=== PATIENT | female | born 1950 | race Caucasian/White ===

== ENCOUNTER 2020-01-21 09:37 | Outpatient (CLI) | payer MEDICARE, SELFPAY ==
[2020-01-21 10:44] LABS: Alanine Aminotransferase 18 U/L (4-35); Albumin Level 4.3 g/dL (3.5-5.1); Alkaline Phosphatase 97 U/L (38-126); Anion Gap 7 mmol/L (8-16); Aspartate Amino Transferase 24 U/L (14-36); Bilirubin,Total 0.5 mg/dL (0.2-1.3); Blood Urea Nitrogen 19 mg/dL (7-17); Calcium 9.4 mg/dL (8.4-10.2); Carbon Dioxide 28 mmol/L (22-30); Chloride 103 mmol/L (98-107); Cholesterol 142 mg/dL (0-200); Estimated Glomerular Filt Rate 50; Glucose 100 mg/dL (65-105); HDL Direct 58 mg/dL; Potassium 3.7 mmol/L (3.4-5.0); Sodium 138 mmol/L (137-145); Triglycerides 81 mg/dL (<150)
[2020-01-21 10:54] LABS: LDL Cholesterol Direct 54 mg/dL
[2020-01-21 11:35] LABS: Vitamin D 25 Hydroxy 33.5 ng/mL
== END 2020-01-21 09:38 | disposition home or self-care (01) ==
PROVIDERS: PCP Internal Medicine; Visit Provider Internal Medicine
DX: E78.5 Hyperlipidemia, unspecified (principal); I10 Essential (primary) hypertension; Z79.899 Other long term (current) drug therapy
CPT/HCPCS: 36415; 80053; 80061; 82306

== ENCOUNTER 2021-01-12 09:09 | Outpatient (CLI) | payer MEDICARE, SELFPAY ==
[2021-01-12 10:00] LABS: Alanine Aminotransferase 19 U/L (4-35); Albumin Level 4.1 g/dL (3.5-5.1); Alkaline Phosphatase 96 U/L (38-126); Anion Gap 7 mmol/L (8-16); Aspartate Amino Transferase 25 U/L (14-36); Bilirubin,Total 0.5 mg/dL (0.2-1.3); Blood Urea Nitrogen 18 mg/dL (7-17); Calcium 9.5 mg/dL (8.4-10.2); Carbon Dioxide 27 mmol/L (22-30); Chloride 103 mmol/L (98-107); Cholesterol 152 mg/dL (0-200); Estimated Glomerular Filt Rate > 60; Glucose 101 mg/dL (65-110); HDL Direct 60 mg/dL; Potassium 3.7 mmol/L (3.4-5.0); Sodium 137 mmol/L (137-145); Triglycerides 95 mg/dL (<150)
[2021-01-12 10:11] LABS: LDL Cholesterol Direct 51 mg/dL
[2021-01-12 11:18] LABS: Vitamin D 25 Hydroxy 43.3 ng/mL
== END 2021-01-12 09:10 | disposition home or self-care (01) ==
LOC: ANHLAB 09:12
PROVIDERS: PCP Internal Medicine; Visit Provider Internal Medicine
DX: E78.5 Hyperlipidemia, unspecified (principal); Z79.899 Other long term (current) drug therapy; I10 Essential (primary) hypertension
CPT/HCPCS: 36415; 80053; 80061; 82306

== ENCOUNTER 2021-08-12 00:28 | Day surgery (SDC) | payer MEDICARE, SELFPAY ==
[2021-08-02 10:50] VITALS: BMI 33.3
--- NOTE | 2021-08-11 10:16 | P.PNAN_ITS ---
Anes - Eval Pre Procedure Procedure: Operation Date: 08/12/21 09:45 Proposed Procedures p Screening Colonoscopy - Jamie Anderson MD Date/Time: 08/11/21 10:16 Pre Op Diagnosis: family hx of colon ca Patient Data Age: 71 Gender: F Height: 1.65 m Weight: 91 kg Allergies Allergy/AdvReac Type Severity Reaction Status Date / Time No Known Allergies Allergy Unknown Uncoded 08/02/21 10:51 Home Medications Medication Instructions Recorded Confirmed Type cholecalciferol (vitamin D3) 125 5,000 unit PO DAILY 04/13/19 08/02/21 History mcg (5,000 unit) capsule lisinopril 20 mg tablet 20 mg PO DAILY 04/13/19 08/02/21 History pantoprazole 40 mg tablet,delayed 40 mg PO QAM 04/13/19 08/02/21 History release rosuvastatin 5 mg tablet 5 mg PO DAILY 04/13/19 08/02/21 History bupropion HCl 150 mg PO DAILY 08/02/21 08/02/21 History Patient hx anesthesia problems: none Family hx anesthesia problems: none Results Review: All pre-operative results and documents have been reviewed as part of the pre-operative evaluation. [facility] Past Medical History Medical History History of hemorrhoids Hypertension Hypocholesterolemia Surgical History Surgical History H/O hernia repair right spigelian H/O tubal ligation H/O: hysterectomy History of bladder surgery bladder tie up History of cholecystectomy Family History Family History Father Hypertension Family history of arthritis Family history of lung disease Mother Hypertension Family history of liver disease Family history of arthritis Family history of malignant neoplasm, Onset Age: 81 Sibling Family history of lung cancer Family history of malignant neoplasm of breast in first degree relative Other Family history of cardiovascular disease Social History Social History Smoking status: Never smoker Alcohol intake: never Living arrangements: with family Spiritual care concerns: No Exam Day of Procedure 08/11/21 10:16
[2021-08-12 08:54] VITALS: BP 136/79; PULSE 85; RESP 16; TEMP 36.4; O2SAT 98
--- NOTE | 2021-08-12 09:03 | WPDANESEFPP ---
Anes - Eval Final PreProcedure Day of Procedure 08/12/21 09:03 Patient weight: obese Heart: regular rate and rhythm Lungs: clear to auscultation and normal air movement Airway: Mallampati scale class II Neurological: alert and oriented Last oral intake: >/= 8 hours ASA classification: III Emergent: no Anesthetic plan: proceed Anesthesia type and monitoring: general GIVS and standard monitoring Results Review: All pre-operative results and documents have been reviewed as part of the pre-operative evaluation. Informed Consent: The patient's anesthetic plan and its attendant risks and benefits were discussed with the patient/family/POA. Questions were solicited and answers provided to the satisfaction of the patient/family/POA.
[2021-08-12] MEDS: LACTATED RINGERS 1,000 ML 150 ML IV CONT (09:05)
--- NOTE | 2021-08-12 09:07 | P.CONGI_ITS ---
Assessment and Plan Assessment and plan (1) Colon cancer screening: Code(s): Z12.11 - Encounter for screening for malignant neoplasm of colon Status: Acute Assessment and Plan: Colonoscopy with possible biopsy or polypectomy or cautery or injection of substances. GI Consult Note Consult date/time: 08/12/21 09:07 HPI: Henny Jeff is a 71 year old female referred for colon cancer screening. She has a family history of colon cancer her mother. Review of Systems Review of Systems: All systems reviewed & are unremarkable except as noted in HPI and below [facility] Past Medical History Medical History (Updated 08/12/21 @ 09:13 by Jamie Anderson MD) History of hemorrhoids Hypertension Hypocholesterolemia Surgical History Surgical History H/O hernia repair right spigelian H/O tubal ligation H/O: hysterectomy History of bladder surgery bladder tie up History of cholecystectomy Family History Family History Father Hypertension Family history of arthritis Family history of lung disease Mother Hypertension Family history of liver disease Family history of arthritis Family history of malignant neoplasm, Onset Age: 81 Sibling Family history of lung cancer Family history of malignant neoplasm of breast in first degree relative Other Family history of cardiovascular disease Social History Social History Smoking status: Never smoker Alcohol intake: never Living arrangements: with family Spiritual care concerns: No Meds Home Medications and Allergies Home Medications Medication Instructions Recorded Confirmed Type cholecalciferol (vitamin D3) 125 5,000 unit PO DAILY 04/13/19 08/02/21 History mcg (5,000 unit) capsule lisinopril 20 mg tablet 20 mg PO DAILY 04/13/19 08/12/21 History pantoprazole 40 mg tablet,delayed 40 mg PO QAM 04/13/19 08/02/21 History release rosuvastatin 5 mg tablet 5 mg PO DAILY 04/13/19 08/02/21 History bupropion HCl 150 mg PO DAILY 08/02/21 08/02/21 History Allergies Allergy/AdvReac Type Severity Reaction Status Date / Time No Known Allergies Allergy Unknown Uncoded 08/12/21 08:53 Vital Signs Vital Signs - 24 hr 08/12/21 08:54 Temperature 36.4 C L Pulse Rate 85 Respiratory Rate 16 Blood Pressure 136/79 Pulse Oximetry 98 Exam Const: General: alert Orientation/consciousness: patient oriented x3 Resp: Auscultation: clear to auscultation bilaterally Cardio: Rhythm: regular rhythm GI: GI Palp: Yes Soft to palpation and No Tenderness to palpation present (GI) Neuro: General: patient oriented x3
[2021-08-12 09:55] VITALS: BP 114/66; PULSE 81; RESP 20; O2SAT 98
[2021-08-12 10:05] VITALS: BP 122/79; PULSE 78; RESP 19; O2SAT 100
[2021-08-12 10:15] VITALS: BP 140/85; PULSE 80; RESP 20; O2SAT 100
== END 2021-08-12 10:20 | disposition home or self-care (01) ==
PROVIDERS: PCP Internal Medicine; Visit Provider Internal Medicine Gastroenterology
PROC: 0DJD8ZZ Inspection of Lower Intestinal Tract, Via Natural or Artificial Opening Endoscopic (ICD-10-PCS; CPT 45378; principal; 2021-08-12 09:45)
DX: Z12.11 Encounter for screening for malignant neoplasm of colon (principal); K64.8 Other hemorrhoids; K57.30 Diverticulosis of large intestine without perforation or abscess without bleeding; Z80.0 Family history of malignant neoplasm of digestive organs; I10 Essential (primary) hypertension; E78.00 Pure hypercholesterolemia, unspecified
CPT/HCPCS: G0105; J2704; J7120

== ENCOUNTER 2022-03-28 10:58 | Outpatient (CLI) | payer MEDICARE, SELFPAY ==
[2022-03-28 11:25] LABS: Basophils Percent Auto 0.7 % (0.2-1.2); Eosinophils Absolute Auto 0.1 K/mm3 (0-0.3); Eosinophils Percent Auto 0.9 % (0-4.4); Hematocrit 40.9 % (37.0-47.0); Hemoglobin 13.1 g/dL (12.0-15.0); Immature Granulocyte Absolute 0.02 K/mm3 (0.00-0.031); Immature Granulocyte Percent A 0.3 % (0-0.5); Lymphocytes Absolute Auto 1.42 K/mm3 (0.9-3.2); Lymphocytes Percent Auto 24.8 % (18.3-44.2); Mean Corpuscular Hemoglobin 29.5 pg (26-34); Mean Corpuscular Volume 92.1 fl (80-100); Mean Platelet Volume 11.8 fl (7.4-10.4); Monocytes Absolute Auto 0.4 K/mm3 (0.1-0.6); Monocytes Percent Auto 7.5 % (2.6-8.5); Neutrophils Absolute Auto 3.8 K/mm3 (1.3-6.7); Neutrophils Percent Auto 65.8 % (45.5-73.1); Platelet Count Result 194 k/mm3 (150-375); Red Blood Count 4.44 M/mm3 (4.2-5.4); Red Cell Distribution Width 14.3 % (11.5-14.5); White Blood Count 5.7 K/mm3 (4.5-10.0)
[2022-03-28 11:35] LABS: Alanine Aminotransferase 21 U/L (6-35); Albumin Level 4.5 g/dL (3.5-5.1); Alkaline Phosphatase 100 U/L (38-126); Anion Gap 14 mmol/L (8-16); Aspartate Amino Transferase 25 U/L (14-36); Bilirubin,Total 0.6 mg/dL (0.2-1.3); Blood Urea Nitrogen 18 mg/dL (7-17); Calcium 9.8 mg/dL (8.4-10.2); Carbon Dioxide 25 mmol/L (22-30); Chloride 102 mmol/L (98-107); Cholesterol 156 mg/dL (0-200); Estimated Glomerular Filt Rate 45; Glucose 105 mg/dL (65-110); HDL Direct 67 mg/dL; Potassium 3.6 mmol/L (3.4-5.0); Sodium 141 mmol/L (137-145); Triglycerides 79 mg/dL (<150)
[2022-03-28 11:45] LABS: LDL Cholesterol Direct 57 mg/dL
[2022-03-28 11:51] LABS: Vitamin D 25 Hydroxy 38.6 ng/mL
== END 2022-03-28 10:59 | disposition home or self-care (01) ==
PROVIDERS: PCP Internal Medicine; Visit Provider Internal Medicine
DX: Z51.81 Encounter for therapeutic drug level monitoring (principal); Z79.899 Other long term (current) drug therapy; I10 Essential (primary) hypertension; E78.5 Hyperlipidemia, unspecified
CPT/HCPCS: 36415; 80053; 80061; 82306; 85025

== ENCOUNTER 2022-11-28 19:02 | Emergency (ER) | payer MEDICARE, SELFPAY ==
[2022-11-28] VITALS (13 sets, daily range): BP systolic 128–162; BP diastolic 72–87; PULSE 82–99; RESP 13–18; TEMP 36.8; O2SAT 97–100
--- NOTE | ~2022-11-28 | XR_ITS ---
EXAMINATION: XR chest 2V Exam Date/Time: 11/28/2022 19:35 CDT HISTORY: chest pain, sob WITH LEFT ARM PAIN X 1 DAY Comparison: None. RESULT: Lines, tubes, and devices: Cholecystectomy clips. Lungs and pleura: Clear. Cardiomediastinal silhouette: Stable. Other: No acute osseous or upper abdominal finding. IMPRESSION: No acute cardiopulmonary process. Reviewed, dictated and finalized at location K.
--- NOTE | 2022-11-28 19:21 | ECG_ITS ---
Measurements Intervals [place] Rate: 93 P: 30 TX: 204 QRS: -1 QRSD: 86 T: 10 QT: 336 QTc: 419 Interpretive Statements SINUS RHYTHM BASELINE ARTIFACT OTHERWISE GROSSLY NORMAL ECG COMPARED TO ECG 03/30/2019 12:29:28 NO SIGNIFICANT CHANGES Electronically Signed On 11-29-2022 8:15:27 CDT by Simone Snow M.D.
--- NOTE | 2022-11-28 19:31 | PC.NURSE ---
After Dr. Cesar left room pt states I'm just worried about my , and pt became tearful. 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 Dr. Cesar notified.
[2022-11-28 19:35] LABS: Basophils Absolute Auto 0.1 K/mm3 (0.0-0.1); Basophils Percent Auto 0.6 % (0.2-1.2); Eosinophils Absolute Auto 0.1 K/mm3 (0-0.3); Hematocrit 38.5 % (37.0-47.0); Hemoglobin 12.6 g/dL (12.0-15.0); Immature Granulocyte Absolute 0.02 K/mm3 (0.00-0.031); Immature Granulocyte Percent A 0.2 % (0-0.5); Lymphocytes Absolute Auto 2.05 K/mm3 (0.9-3.2); Mean Corpuscular HGB Conc 32.7 g/dl (32-36); Mean Corpuscular Hemoglobin 30.1 pg (26-34); Mean Corpuscular Volume 91.9 fl (80-100); Mean Platelet Volume 11.7 fl (7.4-10.4); Monocytes Absolute Auto 0.9 K/mm3 (0.1-0.6); Monocytes Percent Auto 9.9 % (2.6-8.5); Neutrophils Absolute Auto 5.8 K/mm3 (1.3-6.7); Neutrophils Percent Auto 65.3 % (45.5-73.1); Platelet Count Result 188 k/mm3 (150-375); Red Blood Count 4.19 M/mm3 (4.2-5.4); Red Cell Distribution Width 13.7 % (11.5-14.5); White Blood Count 8.9 K/mm3 (4.5-10.0)
[2022-11-28] MEDS: SODIUM CHLORIDE 0.9% IV 1,000 ML 999 ML IV CONT (19:38)
--- NOTE | 2022-11-28 19:42 | ED.GENADULT ---
HPI - General Adult General Chief complaint: Unspecified Stated complaint: i dont feel right Time Seen by Provider: 11/28/22 19:14 History of Present Illness HPI narrative: 72-year-old female presented emergency department for evaluation of not feeling well . Patient states that she had multiple episodes over the last few days where she just did not feel right. Patient is having difficulty explaining exactly what she means by this. Patient states she was not having any pain during this process and patient did not feel like she was going to pass out. Patient states that she did not have any associated dizziness but did feel like she was moving while she was not moving. Patient states the symptoms occurred while she was at rest and lasted approximately 1 minute. Patient states her primary concern is anxiety after these episodes. Patient denies any prior history of SC or CVA. In the emergency department patient denies any complaints. Related Data Home Medications Medication Instructions Recorded Confirmed cholecalciferol (vitamin D3) 125 5,000 unit PO DAILY 04/13/19 08/02/21 mcg (5,000 unit) capsule lisinopril 20 mg tablet 20 mg PO DAILY 04/13/19 08/12/21 pantoprazole 40 mg tablet,delayed 40 mg PO QAM 04/13/19 08/02/21 release rosuvastatin 5 mg tablet 5 mg PO DAILY 04/13/19 08/02/21 bupropion HCl 150 mg 24 hr tablet, 150 mg PO DAILY 08/02/21 08/02/21 extended release Allergies Allergy/AdvReac Type Severity Reaction Status Date / Time No Known Allergies Allergy Unknown Uncoded 11/28/22 19:12 Review of Systems Review of Systems: All systems reviewed & are unremarkable except as noted in HPI and below [facility] Past Medical History Medical History (Updated 11/29/22 @ 00:00 by Background Daemon) History of hemorrhoids Hypertension Hypocholesterolemia Surgical History Surgical History H/O hernia repair right spigelian H/O tubal ligation H/O: hysterectomy History of bladder surgery bladder tie up History of cholecystectomy Family History Family History Father Hypertension Family history of arthritis Family history of lung disease Mother Hypertension Family history of liver disease Family history of arthritis Family history of malignant neoplasm, Onset Age: 81 Sibling Family history of lung cancer Family history of malignant neoplasm of breast in first degree relative Other Family history of cardiovascular disease Social History Social History Smoking status: Never smoker Alcohol intake: never Living arrangements: with family Spiritual care concerns: No Exam Narrative: APPEARANCE: Well appearing, no pain, no distress, well-nourished. HEAD: normocephalic, atraumatic. EYES: PERRLA/EOMI, conjunctivae clear. NOSE: Normal no drainage EARS:TMS clear with good light reflex. THROAT: Pharynx clear, no exudate. NECK: Supple. No adenopathy, no masses. RESPIRATORY: Airway patent, respirations nonlabored. Clear to auscultation bilaterally, no rales, rhonchi, wheezing. CARDIOVASCULAR: Regular rate and rhythm without murmurs rubs or gallops. ABDOMINAL: Soft, nontender, nondistended, normal bowel sounds MUSCULOSKELETAL: Moves all extremities. Strength/ROM intact, No edema, No calf tenderness. NEURO: Alert. Cranial nerves II through XII intact. Grossly intact SKIN: Warm, dry. Normal Color Course Course Emergency Course: 72-year-old female presented the ED for evaluation of not feeling well. Patient had told the triage nurse that she was having some chest pressure so cardiac protocol was ordered. EKG showed no evidence of acute STEMI and showed normal sinus rhythm. Patient was updated on the plan for additional work-up. All questions and concerns were addressed and patient was resting comfortably. Patie
[2022-11-28 19:45] LABS: Alanine Aminotransferase 26 U/L (6-35); Albumin Level 4.3 g/dL (3.5-5.1); Alkaline Phosphatase 108 U/L (38-126); Anion Gap 6 mmol/L (8-16); Aspartate Amino Transferase 34 U/L (14-36); Bilirubin,Total 0.4 mg/dL (0.2-1.3); Blood Urea Nitrogen 22 mg/dL (7-17); Calcium 9.5 mg/dL (8.4-10.2); Carbon Dioxide 30 mmol/L (22-30); Chloride 100 mmol/L (98-107); Estimated CRCL calculation 46 ml/min; Estimated Glomerular Filt Rate 49; Glucose 101 mg/dL (65-110); Lipase 57 U/L (23-300); Potassium 3.4 mmol/L (3.4-5.0); Sodium 136 mmol/L (137-145)
[2022-11-28 19:57] LABS: Troponin I < 0.012 ng/mL (0.000-0.034)
[2022-11-28 19:59] LABS: Platelet Estimate Adequate (Adequate)
[2022-11-28 20:00] LABS: Stomatocytes 1+ (NORMAL)
[2022-11-28 20:02] LABS: Schistocytes None Seen (NORMAL)
[2022-11-28 20:03] LABS: Partial Thromboplastin Time 30.9 SECONDS (22.3-36.8)
[2022-11-28 20:05] LABS: Magnesium 2.2 mg/dL (1.6-2.3)
[2022-11-28 20:49] LABS: Appearance Urine Clear (Clear); Bacteria Urine Rare /hpf; Bilirubin Urine Negative (Negative); Blood Urine Negative (Negative); Color Urine Yellow (Yellow); Glucose Urine UA Negative (Negative); Ketones Urine Negative (Negative); Leukocyte Esterase Ur 2+ LEU/UL (Negative); Nitrate Urine Negative (Negative); Non Pathogenic Casts 0-2; Protein Urine Negative (Negative); RBC Urine 0-2 /hpf (0-2); Specific Grav Ur 1.006 (1.001-1.035); Squamous Epithelial Cell Urine Occasional /hpf (Few); Urobilinogen Urine 0.2 mg/dL (<2.0); pH Urine 6.5 (5.0-9.0)
[2022-11-28 20:54] LABS: Add Urine Microscopic? YES
[2022-11-28 23:09] LABS: Troponin I < 0.012 ng/mL (0.000-0.034)
== END 2022-11-28 23:50 | disposition home or self-care (01) ==
PROVIDERS: Emergency Provider Emergency Medicine; PCP Internal Medicine
DX: R53.83 Other fatigue (principal); R07.89 Other chest pain; I10 Essential (primary) hypertension; E78.00 Pure hypercholesterolemia, unspecified; Z90.710 Acquired absence of both cervix and uterus; Z90.49 Acquired absence of other specified parts of digestive tract
CPT/HCPCS: 36415; 71046; 80053; 81001; 83690; 83735; 84443; 84484; 85025; 85610; 85730; 87086; 87088; 93005; 96360; 99284; J7030

== ENCOUNTER 2022-12-29 16:17 | Outpatient (CLI) | payer MEDICARE, SELFPAY ==
[2022-12-29 17:32] LABS: Alanine Aminotransferase 26 U/L (6-35); Albumin Level 4.5 g/dL (3.5-5.1); Alkaline Phosphatase 115 U/L (38-126); Anion Gap 9 mmol/L (8-16); Aspartate Amino Transferase 30 U/L (14-36); Bilirubin,Total 0.4 mg/dL (0.2-1.3); Blood Urea Nitrogen 20 mg/dL (7-17); Calcium 9.4 mg/dL (8.4-10.2); Carbon Dioxide 27 mmol/L (22-30); Chloride 100 mmol/L (98-107); Cholesterol 180 mg/dL (0-200); Estimated Glomerular Filt Rate 55; Glucose 116 mg/dL (65-110); HDL Direct 73 mg/dL; Potassium 3.4 mmol/L (3.4-5.0); Sodium 136 mmol/L (137-145); Triglycerides 160 mg/dL (<150)
[2022-12-29 17:44] LABS: LDL Cholesterol Direct 66 mg/dL
[2022-12-29 20:28] LABS: Vitamin D 25 Hydroxy 37.6 ng/mL
== END 2022-12-29 16:18 | disposition home or self-care (01) ==
PROVIDERS: PCP Internal Medicine; Visit Provider Internal Medicine
DX: E78.5 Hyperlipidemia, unspecified (principal); Z79.899 Other long term (current) drug therapy
CPT/HCPCS: 36415; 80053; 80061; 82306

== ENCOUNTER 2024-09-08 22:29 | Emergency (ER) | payer MEDICARE, SELFPAY ==
--- NOTE | ~2024-09-08 | CT_ITS ---
CT scan of the Neck Technique: 2.5 mm axial scans were obtained through the neck after intravenous administration of 75 c c Omnipaque 350. Coronal and sagittal reconstructions of the neck were obtained. Dose reduction techn ique was used on this scan by utilizing automated exposure control and iterative reconstruction techn ique. The dose-length product (DLP) was 446.44 mGy-cm. Clinical History: Prevertebral soft tissue swelling Findings: There is no evidence of any significant cervical lymphadenopathy. Several small, nonenlarged jugulo- digastric and posterior cervical lymph nodes are noted bilaterally. Parapharyngeal spaces appear norm al bilaterally. The parotid and submandibular glands appear normal. The pharyngeal mucosal spaces appear normal. No soft tissue masses are seen in the neck. The thyroid gland appears normal. Images of the lung apices reveal no abnormalities. Left sphenoid si nus disease is present. No prevertebral soft tissue swelling. Impression: Left sphenoid sinus disease, otherwise unremarkable exam. Reviewed, dictated and finalized at location . Impression: Left sphenoid sinus disease, otherwise unremarkable exam.
--- NOTE | ~2024-09-08 | XR_ITS ---
AP and lateral views of the neck CLINICAL HISTORY: Globus sensation FINDINGS: No fracture or subluxation of the cervical spine identified. There is moderate facet arthro tori in the cervical spine. No prevertebral soft tissue swelling. No radiopaque foreign body. Epiglo ttis unremarkable. No soft tissue reality seen. IMPRESSION: No significant abnormality identified. Reviewed, dictated and finalized at [facility].
--- OUTSIDE RECORDS SUMMARY | 2024-09-08 22:31 | XMS_ITS | Data Portability ---
Author Organization [place] - [facility] [employer], Main Office Address [address] [place] [address] Care Team Providers Care Nurse Office Name Role Phone SHEILA EUBANKS Primary Care Provider Assessment No assessment recorded. Plan of Treatment Reminders Order Date Submit Date Provider Last Modified By Organization Details Last Modified Time Details Appointments Medicare Wellness 15 2024 09:30A M Sheila Eubanks MD Not available Not available Not available Lab BMP, serum or plasma 2024 025 [place] [facility], [address], [address], [place], [address], 08/25/2024 14:12:35 vitamin D, 25-hydrox y, total, serum 2023 024 [facility], [address] [place], [address], 12/29/2023 21:09:31 lipid panel, serum 2023 024 [facility], [address] [place], [address], 12/29/2023 20:43:14 CMP, serum or plasma 2023 024 [facility], [address] [place], [address], 12/29/2023 20:43:10 Referral None recorded. Procedures removal impacted cerumen requiring instrumen tation (PROC) 2024 025 [email or web address] Not available 09/08/2024 10:17:20 Surgeries None recorded. Imaging MAMMO, screening , digital, bilateral - Schedule After 01/16/242023 024 RASHIDA [facility], [address], [place], [address], 02/23/2024 11:17:38 Medication Orders ketoconaz ole 2 % topical cream 2023 024 RASHIDA [facility]/Pharmacy #[id number], [address], [place], [address], 10/01/2023 14:16:00 Patient TargetsNo targets recorded. Patient Instructions Encounter Date Encounter Id Patient Instructions Last Modified By Organization Details Last Modified Time 12/29/2023 [id number] dementia rating scale-2* Not available 12/30/2023 08:40:22 depression screening* Not available 12/30/2023 08:40:23 alcohol misuse* Not available 12/30/2023 08:40:23 multi-dimensiona l health assessment questionnaire* RASHIDA Not available 12/31/2023 12:51:02 Personalized a lth Plan and Screening Recommendations Advance Directives - Do you have one? Yes You have indicated that you are capable of preparing your advance care directive Advance Directives - Do we have your advance directive on file in your health record? No, please bring in a copy at your earliest convenience Primary Prevention/Interven tion (prevents or decreases the chance of common diseases from occurring) Smoking Risk: Non Smoker Alcohol Misuse Screening: Negative Weight: Appropriate Overwei ght continue your current weight loss efforts try to lose 5% of your body weight try to lose 10% of your body weight Physical activity: Need more exercise/physical activity minimum of 10-20 minutes of activity that causes mild breathlessness/day Nutrition: Good Average Refer to attached handout Heart-Healthy Diet: After Your Visit Fall Risk (screened today): Low Refer to attached handout Preventing Falls: After your Visit Vaccines Pneumococcal: Ordered Recommended today Recommended today, but you have declined No further needed Influenza: Your next one in the fall of this year Chronic Disease Risks Stroke: Low Risk Intermediate Risk I have no recommendations Act ruma diagnosis, Continue current treatment plan Heart Attack: Low risk Intermediate Risk I have no recommendations Act ruma diagnosis, Continue current treatment plan Clogging of the Arteries: Low risk Intermediate Risk I have no recommendations Act ruma diagnosis, Continue current treatment plan Diabetes: Low Risk I have no recommendations Secondary Prevention/Interven tion (detects treatable diseases before they may cause symptoms, disability, or ) Breast Cancer Screening with mammogram: No screening necessary Cervical/Uterine/Ov dayton Cancer Screening: No screening necessary Osteoporosis Screening: No screening necessary Date Screening Last Performed: Colon Cancer Screening: Colonoscopy Date Screening Last Performed: 2021_ Eye Disease Screening: No Eye exam necessary Dementia Risk: Low I have no recommendations Depression Screening: Negative [email or web address] Not available 12/29/2023 13:05:18 09/07/2024 [id number] advised that if her throat symptoms continue to persist in several weeks to follow up with her PCP for a GI referral. Discussed that her symptoms are likely due to the recent loss of her spouse. [email or web address] Not available 09/07/2024 12:13:19 Reason for Referral None Reported. Results Created Date Observation Date Name Description Value Unit Range Abnormal Flag Note LastModifiedBy Organization Detail LastModifiedTime 12/29/19 24 12/29/2023 COMPR EHENS RUMA METAB OLIC PANEL sodium 135 mmol/ L 137-[address] [facility] (Lab) [address] [place], [address], 12/29/2023 20:43:10 12/29/19 24 12/29/2023 COMPR EHENS RUMA METAB OLIC PANEL potassium 4.1 mmol/ L 3.5-5. [address] [facility] (Lab) [address] [place], [address], 12/29/2023 20:43:10 12/29/19 24 12/29/2023 COMPR EHENS RUMA METAB OLIC PANEL chloride 104 mmol/ L 98-[address] [facility] (Lab) [address] [place], [address], 12/29/2023 20:43:10 12/29/19 24 12/29/2023 COMPR EHENS RUMA METAB OLIC PANEL carbon dioxide 28 mmol/ L 22-[address] [facility] (Lab) [address] [place], [address], 12/29/2023 20:43:10 12/29/19 24 12/29/2023 COMPR EHENS RUMA METAB OLIC PANEL anion gap 7.1 mmol/ L 14-[address] [facility] (Lab) [address] [place], [address], 12/29/2023 20:43:10 12/29/19 24 12/29/2023 COMPR EHENS RUMA METAB OLIC PANEL glucose 104 mg/dL 70-[address] [facility] (Lab) [address] [place], [address], 12/29/2023 20:43:10 12/29/19 24 12/29/2023 COMPR EHENS RUMA METAB OLIC PANEL BUN 16 mg/dL 8-[address] [facility] (Lab) [address] [place], [address], 12/29/2023 20:43:10 12/29/19 24 12/29/2023 COMPR EHENS RUMA METAB OLIC PANEL creatinine 1.01 mg/dL 0.66-[address] [facility] (Lab) [address] [place], [address], 12/29/2023 20:43:10 12/29/19 24 12/29/2023 COMPR EHENS RUMA METAB OLIC PANEL GFR 54 Refer ence Range : Thatcher ge GFR Healt hy Adult : >60 mL/mi n/1.7 3 m2 Chron ic Kidne y Disea se: 15-60 mL/mi n/1.7 3 m2 Kidne y Failu re: <15/m L/min /1.73 m2 www.n iddk. nih.g ov The MDRD study equat ion has not been valid ated in child john <18 years of age; pregn ant women ; the elder ly >85 years of age; or in some racia l or ethni c subgr oups, such as Hispa nics. Outsi de the valid ated jack eters , estim ated GFR is less accur ate, requi ring clini david judgm ent on a case- by-ca se basis . Clini david inter preta tion for other races and ages must be made by the clini nishi. The MDRD study equat ion has not been valid ated for the evalu ation of serum creat inine relat ed to nutri susan l statu s or medic ation usage . For perso ns <18 years of age, a pedia tric GFR calcu lator is avail able on the [facility] websi te: https :[email or web address] vieira.salas dinero.ariella kumari/pr ofess ional s/kdo qi/gf r_cal culat or Not Available [facility] (Lab) [address] [place], [address], 12/29/2023 20:43:10 12/29/19 24 12/29/2023 COMPR EHENS RUMA METAB OLIC PANEL alkaline phosphatase 112 U/L 38-126 Not Available [facility] (Lab) [address] [place], [address], 12/29/2023 20:43:10 12/29/19 24 12/29/2023 COMPR EHENS RUMA METAB OLIC PANEL alanine aminotransfe rase 24 U/L 0-35 Not Available [facility] (Lab) [address] [place], [address], 12/29/2023 20:43:10 12/29/19 24 12/29/2023 COMPR EHENS RUMA METAB OLIC PANEL aspartate aminotransfe rase 33 U/L 15-37 Not Available [facility] (Lab) [address] [place], [address], 12/29/2023 20:43:10 12/29/19 24 12/29/2023 COMPR EHENS RUMA METAB OLIC PANEL bilirubin, total 1.00 mg/dL 0.20-[address] [facility] (Lab) [address] [place], [address], 12/29/2023 20:43:10 12/29/19 24 12/29/2023 COMPR EHENS RUMA METAB OLIC PANEL calcium 9.9 mg/dL 8.4-[address] [facility] (Lab) [address] [place], [address], 12/29/2023 20:43:10 12/29/19 24 12/29/2023 COMPR EHENS RUMA METAB OLIC PANEL total protein 7.1 g/dL 6.3-8. [address] [facility] (Lab) [address] [place], [address], 12/29/2023 20:43:10 12/29/19 24 12/29/2023 COMPR EHENS RUMA METAB OLIC PANEL albumin 4.5 g/dL 3.0-4. [address] [facility] (Lab) [address] [place], [address], 12/29/2023 20:43:10 12/29/19 24 12/29/2023 COMPR EHENS RUMA METAB OLIC PANEL globulin 2.6 g/dL 2.6-4. [address] [facility] (Lab) [address] [place], [address], 12/29/2023 20:43:10 12/29/19 24 12/29/2023 COMPR EHENS RUMA METAB OLIC PANEL A/G ratio 1.7 ratio 1.0-2. [address] [facility] (Lab) [address] [place], [address], 12/29/2023 20:43:10 12/29/19 24 12/29/2023 LIPID PANEL cholesterol 166 mg/dL 140-19 9 [facility] OWEN NSUS RECOM MENDA TION FOR JAH STERO L: ADULT CHILD LOW RISK: <200 <170 BORDE RLINE : <200- 239 ----- HIGH RISK: >240 >[address] [facility] (Lab) [address] [place], [address], 12/29/2023 20:43:14 12/29/19 24 12/29/2023 LIPID PANEL triglyceride s 109 mg/dL 0-150 NIH OWEN NSUS REPOR T RECOM MENDA TION FOR TRIGL YCERI FABIANO: ADULT CHILD LOW RISK: <150 ----- BODER LINE: 150-1 99 ----- HIGH RISK: >200 ----- Not Available [facility] (Lab) [address] [place], [address], 12/29/2023 20:43:14 12/29/19 24 12/29/2023 LIPID PANEL HDL cholesterol 79 mg/dL 40- Not Available [facility] (Lab) [address] [place], [address], 12/29/2023 20:43:14 12/29/19 24 12/29/2023 LIPID PANEL LDL cholesterol, calculated 65 mg/dL 0-130 [facility] OWEN NSUS REPOR T RECOM MENDA TIONS FOR LDL: ADULT CHILD LOW RISK <130 <110 (OPTI MAL LDL) <100 ----- BORDE RLINE : 130-1 59 ----- HIGH RISK: >160 >130 A TRIGL YCERI DE RESUL T >400 INVAL IDATE S THE CALCU LATIO N FOR LDL FRACT IONAT ION - THE LDL RESUL T WILL NOT BE REPOR AUDREY. Not Available [facility] (Lab) [address] [place], [address], 12/29/2023 20:43:14 12/29/19 24 12/29/2023 VITAM IN D 25-HY DROXY [id number] 35.3 NG/mL 30-100 Vitam in D Statu s: Defic ient: <20 ng/mL Insuf ficie nt: 20-29 ng/mL Suffi cient : 30-10 0 ng/mL Not Available [facility] (Lab) [address], [place], [address], 12/29/2023 21:06:19 02/23/20 24 02/23/2024 bone densi ty No observ ation record ed. [email or web address] [facility] [address], [place], [address], 03/07/2024 09:55:32 02/23/20 24 02/23/2024 MAMMO , scree chelsea, digit al, bilat eral No observ ation record ed. [email or web address] [facility] [address], [place], [address], 03/07/2024 09:55:33 02/23/20 24 02/23/2024 MAMMO , scree chelsea, digit al, bilat eral No observ ation record ed. [email or web address], [place], [address], 03/07/2024 09:55:33 Result Notes None recorded. Problems Name Problem SNOMED Code Status Onset Date Resolution Date Notes Provider Name and Address Organization Details Recorded Time Inguinal pain 963835404 Completed Not Available [facility] 3 06:14:32 Pressure ulcer of left foot stage 1 Active 2021 Not Available [facility] 3 13:48:13 Fracture of lumbar spine 676243555 Completed Not Available [facility] 3 06:14:32 Celluliti s 011315318 Completed Not Available [facility] 3 06:14:32 Disorder of lower leg 913377624 Completed 202112/16/2021 Not Available [facility] 3 06:14:32 Mammograp hy abnormal 197801762 Completed Not Available [facility] 3 06:14:32 Cataract 685366350 Active Not Available [facility] 3 13:48:13 Incomplet e uterovagi nal prolapse 243951430 Active Not Available [facility] 3 13:48:13 Abdominal pain 36557042 Completed Not Available [facility] 3 06:14:33 Gastroeso phageal reflux disease 585950369 Active Not Available [facility] 3 13:48:13 Cystocele 439804590 Active Not Available [facility] 3 13:48:13 Infection of sebaceous cyst 802623101 Active 2022 Not Available [facility] 3 13:48:13 Infected insect bite 045088063 Completed 202112/16/2021 Not Available [facility] 3 06:14:33 Gastroeso phageal reflux disease without esophagit is 029012414 Completed 202108/08/2022 Twila mejia, ROBERT atkinson, [employer] 3 11:18:16 Adult health examinati on Active 2021 Sheila Eubanks MD [address] [facility], [place], [address] , [employer] [facility] 4 11:37:02 Eruption 262773962 Completed Sheila Eubanks MD [address], [place], [address] , [employer] [facility] 4 14:11:40 Laceratio n of skin 191399288 Completed Not Available [facility] 3 06:14:33 Screening for malignant neoplasm of colon Completed 202112/16/2021 Not Available [facility] 3 06:14:33 Screening for osteoporo sis Completed 202107/11/2022 Not Available [facility] 3 06:14:34 Screening for osteoporo sis Completed 202112/16/2021 Not Available [facility] 3 06:14:34 Depressiv e disorder 94381293 Active 2021 Not Available [facility] 3 13:48:13 Malignant neoplasm of skin 418864868 Active Not Available [facility] 3 13:48:13 Osteoarth ritis 056168376 Active Not Available [facility] 3 13:48:13 Obesity 265701532 Active Not Available [facility] 3 13:48:13 Epidermoi d cyst of skin 408892289 Completed Twila mejia RMA null, [employer] [facility] [employer] [facility] 4 14:02:45 Disorder of urinary bladder 60522450 Completed Not Available [facility] 3 06:14:34 Anxiety 75486421 Active 2021 Not Available [facility] 3 13:48:13 Hip pain 99106136 Completed Not Available [facility] 3 06:14:35 Hyperlipi demia 30413180 Active Not Available [facility] 3 13:48:13 Essential hypertens ion 39797806 Active Not Available [facility] 3 13:48:13 Liver cyst 29321730 Active Not Available [facility] 3 13:48:13 Ingrowing nail 085190168 Completed 202209/14/2023 Twila mejia RMA null, [employer] [facility] 4 08:08:30 Epidermoi d cyst of skin 095841354 Completed 202210/01/2023 Twila mejia RMA null, [employer] [facility] [employer] [facility] 4 14:02:45 Dysplasti c nevus of skin 454600583 Active 2022 Twila mejia RMA null, [place] [employer] [place] [facility] 4 14:02:47 Kidney disease 07305563 Active 2022 Twila mejia RMA null, [employer] [facility] [employer] [facility] 4 08:08:35 Eruption 768593156 Active 2023 Sheila Eubanks MD [address] [place] [address], [place] [address], [place], [address] , [facility] [employer] [facility] 4 14:11:40 Submammar y intertrig o 681553722 Active 2023 Sheila Eubanks MD [address] [facility], [facility] [address], [place], [address] , [facility] 4 14:14:55 Conjuncti vitis 4100133 Active 2023 ROBERT Reis null, [facility] 4 17:14:14 Pain of left hip joint 01594047293 9100 Active 2023 Puja José MA null, [facility] 4 15:18:36 Impacted cerumen of bilateral ears 40524869212 30218 Active 2024 Puja José MA null, [facility] 5 10:30:29 Impacted cerumen in left ear 80204248189 95401 Active 2024 MATT Bradshaw [address] [facility], [facility] [address], [place], [address] , [facility] 5 12:10:17 Feeling of lump in throat 001605174 Active 2024 MATT Bradshaw [address] [facility], [facility] [address], [place], [address] , [facility] 5 12:10:51 Renal function tests outside reference range 369035287 Active 2024 LESLIE Ramos, [facility] 5 14:53:50 Notes:Some problems listed i n Documents: #[id number], #[id number] could not be added to this patient's chart. Please review these documents and add these problems to the patient's chart manually as needed. Problem Notes None recorded. Procedures Surgical History Date Name Laterality Status Provider Name and Address Organization Details Recorded Time 04/26/20 Medicare Wellness CPT Code, subsequent completed ROBERT Pearson [facility] 04/26/2024 12:17:58 12/29/19 Medicare Wellness CPT Code, subsequent completed Safia Villanueva RN [facility] [address] [employer] [facility] 12/29/2023 11:50:43 08/27/19 23 Excision Cyst Multilayer completed Henry mejia MD [address] [place] [address], [address], [facility] [employer] [facility] 08/26/2022 13:27:37 08/27/19 23 excision completed Vinita Sharma MA [facility] [employer] [facility] 09/02/2022 11:17:15 07/01/19 23 incision and drainage completed Not Available [facility] 08/06/2022 06:08:21 12/14/19 22 Most Recent Bone Density completed Not Available [facility] 08/06/2022 06:08:19 08/13/19 22 Date of Last Colonoscopy completed Not Available [facility] 08/06/2022 06:08:19 other completed Not Available [facility] 08/06/2022 06:08:21 Hysterectomy completed Not Available [facility] 08/06/2022 06:08:21 Hernia Surgery completed Not Available [facility] 08/06/2022 06:08:21 Cholecystectomy completed Not Available [facility] 08/06/2022 06:08:21 Imaging Results Imaging Date Name Status LastModified by [facility] Details LastModified Time 02/23/2024 bone density completed [address] [place], [address], 03/07/2024 09:55:32 02/23/2024 MAMMO, screening, digital, bilateral completed [address], [place], [address], 03/07/2024 09:55:33 02/23/2024 MAMMO, screening, digital, bilateral completed [address] [place], [address], 03/07/2024 09:55:33 Procedure Notes None recorded. Medical Equipment None Reported. Allergies No known drug allergies Medications Name Sig Start Date Stop Date Status Note LastModified by Organization Details LastModified Time ofloxacin 0.3 % eye drops INSTILL 1 DROP INTO AFFECTED EYE THREE TIMES A DAY DIRECTED TO BEGIN TWO DAYS PRIOR TO SURGERY 05/17 completed Not Available Not Available Not Available benzonata te 200 mg capsule Take 1 capsule 3 times a day by oral route. active Not Available Not Available No t Available hydrocodo ne 5 mg-acetam inophen 325 mg tablet TK 1-2 TS PO Q 4 H PRF P 07/12 completed Not Available Not Available Not Available lisinopri l 20 mg tablet Take 1 tablet every day by oral route. 2014 active Not Available Not Available Not Avai lable triamcino lone acetonide 0.1 % topical cream 07/04 completed as needed Not Available Not Available Not Available amoxicill in 500 mg tablet Take 1 tablet 3 times a day by oral route for 7 days. active Not Available Not Available No t Available ketorolac 0.5 % eye drops INSTILL 1 DROP INTO AFFECTED EYE FOUR TIMES A DAY BEGIN USE 2 DAYS BEFORE SURGERY 05/17 completed Not Available Not Available Not Available ciclopiro x 8 % topical solution APPLY TO AFFECTED AREA OF NAILS ONCE DAILY 05/17 completed Not Available Not Available Not Available prednisol one acetate 1 % eye drops,tim pension INSTILL 1 DROP INTO THE SURGICAL EYE 3 TIMES A DAY STARTING AFTER SURGERY 05/17 completed Not Available Not Available Not Available triamcino lone acetonide 0.025 % topical cream APPLY A THIN LAYER TO THE AFFECTED AREA(S) BY TOPICAL ROUTE 2 TIMES PER DAY active Not Available Not Available No t Available ciproflox acin 0.3 % eye drops DROP 1 DROP INTO AFFECTED EYES EVERY 2 HRS WHILE AWAKE X2 DAYS THEN EVERY 4 HRS WHILE AWAKE X5 DAYS 04/26 completed Not Available Not Available Not Available Kenalog 10 mg/mL suspensio n for injection In office injectio n administ ered by the provider 07/30 completed [facility] [place]NOTE 2]: [id number] Not Available Not Available Not Available cephalexi n 500 mg capsule TK 1 C PO QID FOR 7 DAYS active Not Available Not Available No t Available pantopraz ole 40 mg tablet,de layed release TAKE 1 TABLET BY MOUTH DAILY 2023 active YOJANA 04/26/24 NOV 08/24/24 ok to rf Not Available Not Available Not Available lisinopri l 10 mg tablet Take 1 tablet every day by oral route. active Not Available Not Available No t Available lisinopri l 20 mg-hydroc hlorothia zide 25 mg tablet TAKE 1 TABLET BY MOUTH DAILY 2024 active Not Available Not Available Not Avai lable diclofena c sodium 75 mg tablet,de layed release Take 1 tablet every 12 hours by oral route as needed. 07/29 completed Not Available Not Available Not Available mupirocin 2 % topical ointment 07/12 completed Not Available Not Available Not Available metoprolo l succinate ER 25 mg tablet,ex tended release 24 hr TAKE 1 TABLET BY MOUTH EVERY DAY active Not Available Not Available No t Available ibuprofen 600 mg tablet 07/12 completed Not Available Not Available Not Available methylpre dnisolone 4 mg tablets in a dose pack TAKE 6 TABLETS ON DAY 1 DIRECTED ON PACKAGE AND DECREASE BY 1 TAB EACH DAY FOR A TOTAL OF 6 DAYS 07/20 completed Not Available Not Available Not Available Vitamin D2 1,250 mcg (50,000 unit) capsule Take 1 capsule every week by oral route for 90 days. active Not Available Not Available No t Available ketoconaz ole 2 % topical cream APPLY TO AFFECTED AREA EVERY DAY active Not Available Not Available No t Available ondansetr on 4 mg disintegr ating tablet 07/12 completed Not Available Not Available Not Available doxycycli ne hyclate 100 mg tablet Take 1 tablet twice a day by oral route. active Not Available Not Available No t Available dicyclomi ne 10 mg capsule Take 1 capsule 3 times a day by oral route. active Not Available Not Available No t Available buspirone 15 mg tablet TAKE 1 TABLET BY MOUTH TWICE A DAY NEEDED active Not Available Not Available No t Available ciclopiro x 0.77 % topical cream APPLY TO AFFECTED AREA 1-2 TIMES DAILY 07/15 completed Not Available Not Available Not Available escitalop bernadette 10 mg tablet active Not Available Not Available Not Available Vitamin D3 25 mcg (1,000 unit) capsule Take 1 capsule every day by oral route. 07/04 completed Not Available Not Available Not Available rosuvasta tin 5 mg tablet TAKE 1 TABLET BY MOUTH DAILY 2024 active Not Available Not Available Not Avai lable rosuvasta tin 10 mg tablet TAKE ONE TABLET BY MOUTH DAILY 09/13 completed DELETED Not Available Not Available Not Available bupropion HCl XL 300 mg 24 hr tablet, extended release TAKE 1 TABLET BY MOUTH EVERY DAY active Not Available Not Available No t Available bupropion HCl XL 150 mg 24 hr tablet, extended release TAKE 1 TABLET EVERY DAY 04/28 completed Not Available Not Available Not Available Vitamin D3 OTC- QD 2020 active Not Available Not Available Not Avai lable multivita min active Not Available Not Available Not Available lidocaine (PF) 10 mg/mL (1 %) injection solution In office injectio n administ ered by the provider 07/30 completed [facility] [place]NOTE 2]: [id number] 11-22 Not Available Not Available Not Available cholecalc iferol (vitamin D3) 1,250 mcg (50,000 unit) capsule TAKE 1 TABLET BY MOUTH ONCE A WEEK FOR 8 WEEKS 07/20 completed Not Available Not Available Not Available Suprep Bowel Prep Kit 17.5 gram-3.13 gram-1.6 gram oral solution MIX AND DRINK UTD active Not Available Not Available No t Available Fluzone High-Dose Quad (PF) 240 mcg/0.7 mL IM syringe PHARMACY ADMINIST ERED 07/30 completed Not Available Not Available Not Available Lagevrio 200 mg capsule (EUA) 08/08 completed Not Available Not Available Not Available Vitals Date Recorded Body height Body mass index (BMI) Body weight Body temperature Heart rate Oxygen saturation Oxygen saturation in Arterial blood by Pulse oximetry Systolic blood pressure Diastolic blood pressure Provider Name and Address Organization Details Last Updated DateTime 4 165.1 cm 32.8 kg/m2 20822.7 g 98.8 [degF] 75 /min 99 % 99 % 130 mm[Hg] 80 mm[Hg] ROBERT Villeda [place] - [facility] [place] [employer] [facility] 4 14:05:32 Date Recorded Body height Body mass index (BMI) Body weight Body temperature Heart rate Oxygen saturation Oxygen saturation in Arterial blood by Pulse oximetry Systolic blood pressure Diastolic blood pressure Provider Name and Address Organization Details Last Updated DateTime 4 165.1 cm 32.4 kg/m2 85475.5 1 g 97.2 [degF] 67 /min 98 % 98 % 120 mm[Hg] 80 mm[Hg] Twila Terrance kemi Preet [facility] [employer] [facility] 4 11:25:13 Date Recorded Pain severity - 0-10 verbal numeric rating [Score] - Reported Provider Name and Address Organization Details Last Updated DateTime 12/29/2023 1 Safia Villanueva RN [facility] [employer] [facility] 12/29/2023 11:51:17 Date Recorded Body height Body mass index (BMI) Body weight Body temperature Heart rate Oxygen saturation Oxygen saturation in Arterial blood by Pulse oximetry Systolic blood pressure Diastolic blood pressure Provider Name and Address Organization Details Last Updated DateTime 4 165.1 cm 33.1 kg/m2 41109.8 8 g 97.6 [degF] 77 /min 97 % 97 % 120 mm[Hg] 80 mm[Hg] Twila Interianoisrajony mcmullen Preet [facility] [employer] [facility] 4 12:17:46 Date Recorded Body height Body mass index (BMI) Body weight Body temperature Heart rate Oxygen saturation Oxygen saturation in Arterial blood by Pulse oximetry Systolic blood pressure Diastolic blood pressure Provider Name and Address Organization Details Last Updated DateTime 5 165.1 cm 32.6 kg/m2 47411.1 g 96.8 [degF] 67 /min 98 % 98 % 138 mm[Hg] 80 mm[Hg] Twila mcmullen Preet [facility] [employer] [facility] 5 11:33:42 Date Recorded Body height Body mass index (BMI) Body weight Body temperature Provider Name and Address Organization Details Last Updated DateTime 09/07/2024 165.1 cm 32.6 kg/m2 20379.1 g 98 [degF] Shae Rivera RN [facility] [employer] [facility] 09/07/2024 11:32:24 Social History Question Answer Notes LastModified by Organization Details LastModified Time Tobacco Smoking Status Never Smoker CELIA French, [facility] [employer] [facility] 08/26/2022 12:25:40 Do You Have An Advance Directive? Yes Will Bring In Copy, Reminded On 12/29/2023 [email or web address] Information not available 12/29/2023 What Is Your Level Of Alcohol Consumption? None [id number] Information not available 08/06/2022 Are You Blind Or Do You Have Difficulty Seeing? No Information not available 08/26/2022 Is Blood Transfusion Acceptable In An Emergency? Yes [email or web address] Information not available 12/29/2023 What Is Your Level Of Caffeine Consumption? Heavy [email or web address] Information not available 12/29/2023 What Is Your Code Status? Other [email or web address] Information not available 12/29/2023 In The 14 Days Before Symptom Onset, Have You Had Close Contact With A Laboratory-conf irmed COVID-19 While That Case Was Ill? No Not Applicable [email or web address] Information not available 12/29/2023 In The 14 Days Before Symptom Onset, Have You Had Close Contact With A Person Who Is Under Investigation For COVID-19 While That Person Was Ill? No Not Applicable [email or web address] Information not available 12/29/2023 Are You Currently Employed? No [email or web address] Information not available 12/29/2023 Are You Deaf Or Do You Have Serious Difficulty Hearing? No [email or web address] Information not available 08/26/2022 What Type Of Diet Are You Following? REGULAR [id number] Information not available 08/06/2022 What Is The Highest Grade Or Level Of School You Have Completed Or The Highest Degree You Have Received? [id number] [email or web address] Information not available 08/26/2022 What Is Your Occupation? Retired [email or web address] Information not available 08/26/2022 How Many Days Of Moderate To Strenuous Exercise, Like A Brisk Walk, Did You Do In The Last 7 Days? 0 [email or web address] Information not available 12/29/2023 Have There Been Any Changes To Your Family Or Social Situation? Yes Stress Related To Spousal Care Has Increaseed [email or web address] Information not available 12/29/2023 What Is The Fluoride Status Of Your Home? Fluoridated [email or web address] Information not available 08/26/2022 Are There Any Guns Present In Your Home? Yes [email or web address] Information not available 08/26/2022 Do You Use Insect Repellent Routinely? Yes [email or web address] Information not available 12/29/2023 Where Do You Live? SingleLevelHouse [email or web address] Information not available 08/26/2022 Presence Of Domestic Violence No [email or web address] Information not available 12/29/2023 Guns Present In The Home? Yes [email or web address] Information not available 12/29/2023 Are You Able To Care For Yourself? Yes [email or web address] Information not available 12/29/2023 Are You Blind Or Do Yo Have Difficulty Seeing? No [email or web address] Information not available 12/29/2023 Are You Deaf Or Do You Have Serious Difficulty Hearing? No [email or web address] Information not available 12/29/2023 General Stress Level? High [email or web address] Information not available 12/29/2023 Live Alone Of With Others? With Others [email or web address] Information not available 12/29/2023 Do You Have A Medical Power Of Polysomnographic Tech? Yes [email or web address] Information not available 12/29/2023 What Was The Date Of Your Most Recent Tobacco Screening? 12/29/2023 [email or web address] Information not available 12/29/2023 How Many Children Do You Have? 2 [email or web address] Information not available 12/29/2023 Do You Have Any Pets? No [email or web address] Information not available 12/29/2023 What Is Your Relationship Status? [id number] Information not available 08/06/2022 Do You Use Your Seat Belt Or Car Seat Routinely? Yes [email or web address] Information not available 08/26/2022 Are You Sexually Active? No [email or web address] Information not available 12/29/2023 Do You Have Smoke And Carbon Monoxide Detectors In Your Home? Yes [email or web address] Information not available 08/26/2022 Are You Passively Exposed To Smoke? Yes [email or web address] Information not available 12/29/2023 Are There Any Smokers In Your House? Yes Information not available 08/26/2022 What Types Of Sporting Activities Do You Participate In? None [email or web address] Information not available 12/29/2023 Do You Feel Stressed (tense, Restless, Nervous, Or Anxious, Or Unable To Sleep At Night)? [id number] Increased Stressors From Becoming A Care Provider To [email or web address] Information not available 12/29/2023 Do You Use Any Illicit Or Recreational Drugs? No [email or web address] Information not available 08/26/2022 Do You Use Sunscreen Routinely? Yes [email or web address] Information not available 08/26/2022 Has Tobacco Cessation Counseling Been Provided? No [email or web address] Information not available 12/29/2023 Have You Recently Traveled Abroad? No Information not available 08/26/2022 Do You Have Any Dietary Restrictions? No [email or web address] Information not available 08/26/2022 Do You Or Have You Ever Used Any Other Forms Of Tobacco Or Nicotine? No [email or web address] Information not available 08/26/2022 Sex: Unknown Functional Status Question Answer Note LastModified by Organizat ion Details LastModified Time Do you have difficulty walking or climbing stairs? Yes related to hip/back pain [email or web address] Information not available 12/29/2023 Do you have transportation difficulties? No [email or web address] Information not available 08/26/2022 Are you able to walk? YESWOREST [email or web address] Information not available 08/26/2022 Do you have difficulty doing errands alone? No [email or web address] Information not available 08/26/2022 Are you able to care for yourself? Yes [email or web address] Information n ot available 08/26/2022 Do you have difficulty dressing or bathing? No [email or web address] Information not available 08/26/2022 What is your exercise level? None [email or web address] Information not available 12/29/2023 Mental Status Question Answer Note LastModified by Organization D etails LastModified Time Do you have difficulty concentrating, remembering or making decisions? No [email or web address] Information no t available 08/26/2022 Family History Relationship Description Onset Age of this Age Resolved Age Notes LastModified by Organization Details LastModified Time Father No current problems or disability [id number] Not available 08/06/2022 06:08:25 Mother No current problems or disability [email or web address] [id number] Not available 08/06/2022 06:08:25 Notes:NO ENT Medical History Condition Response ARTHRITIS Y ALLERGIES/HAYFEVER Y HEARTBURN / REFLUX Y HYPERTENSION Y HIGH CHOLESTEROL / HYPERLIPIDEMIA Y CANCER: SPECIFY Y ANXIETY DISORDER Y Gynecological History Statement/Question Response Date of Last Mammogram 12/13/2021 Date of Last Colonoscopy 08/12/2021 Most Recent Bone Density 12/13/2021 Obstetrics History GPAL:G 0 P 0 0 0 0 Immunizations Vaccine Type Date Status Note Provider Nam e and Address Organization Details Recorded Time COVID-19, mRNA, LNP-S, PF, 30 mcg/0.3 mL dose 1 completed Not Available [facility] 08/06/2022 06:20:19 COVID-19, mRNA, LNP-S, PF, 30 mcg/0.3 mL dose 1 completed Not Available [facility] 08/06/2022 06:20:19 Influenza, high-dose, quadrivalent, PF 0 completed Not Available [facility] 08/06/2022 06:20:19 Influenza, high-dose, quadrivalent, PF 2 completed Not Available [facility] 08/06/2022 06:20:19 Influenza, high-dose, quadrivalent, PF 1 completed Not Available [facility] 08/06/2022 06:20:19 pneumococcal polysaccharide PPV23 1 completed Not Available [facility] 08/06/2022 06:20:20 Pneumococcal conjugate PCV 13 9 completed Not Available [facility] 08/06/2022 06:20:20 Tdap 6 completed Not Available [facility] 08/06/2022 06:20:20 Influenza, split virus, trivalent, PF 4 completed ROBERT Pearson, [place] - [facility] [place] [facility] 04/26/2024 17:51:48 Past Encounters Encounter ID Performer Location Encounter Start Date Encounter Closed Date Diagnosis/Indication Diagnosis SNOMED-CT Code Diagnosis ICD10 Code Diagnosis Note [id number] [facility] [address] [address] 11/12/2020 00:00:00 11/12/2020 17:18:29 [id number] [facility] [address] [address] 01/11/2021 00:00:00 01/11/2021 13:01:50 [id number] [facility] [address] [address] 05/17/2021 00:00:00 05/17/2021 12:31:30 [id number] [facility] [address] [address] 07/05/2021 00:00:00 07/05/2021 12:23:40 [id number] [facility] [address] [facility] [place] [address] 11/07/2021 00:00:00 11/07/2021 13:04:08 [id number] [facility] [address] [facility] [place] [address] 11/13/2021 00:00:00 11/13/2021 12:20:22 [id number] [facility] [address] [address] 12/19/2021 00:00:00 12/19/2021 14:47:02 [id number] [facility] [address] [facility] [place] [address] 03/14/2022 00:00:00 03/14/2022 13:53:20 [id number] [facility] [address] [place] [address] 06/26/2022 00:00:00 06/26/2022 11:41:09 [id number] [facility] [address] [address] 07/01/2022 00:00:00 07/01/2022 13:57:15 [id number] [facility] [address] [address] 07/15/2022 00:00:00 07/15/2022 14:12:50 [id number] Sheila Eubanks MD [facility] [address] [facility] [place] [address] 08/08/2022 11:00:47 08/08/2022 12:00:29 Anxiety 24434692 F41.9 stable Depressive disorder 3548 9007 F32.A stable Essential hypertension 98118477 I10 under control Gastroesop hageal reflux disease 630149570 K21.9 meds help Hyperlipidemia 58698478 E78.5 stable Malignant neoplasm of skin 061871254 C44.90 no recuurence Obesity 302551699 E66.9 has lost some Osteoarthritis 133045118 M19.90 otc , local ointments Adult heal th examination 300831414 Z00.00 Colonoscop y 08/27Mammog bernadette- 2DEX A- 12/2021FLU - OV ID- 08/26/20, 09/22/20 and 1 boosterHad both pneumovax [id number] Henry cunningham MD [facility] General Surgery [address] [address] 08/26/2022 12:23:32 08/26/2022 13:30:04 Epidermoid cyst of skin 973666837 L72.0 x 4 Back [id number] Henry cunningham MD [facility] General Surgery [address] [address] 09/02/2022 10:52:37 09/02/2022 11:49:43 Epidermoid cyst of skin 639411516 L72.0 x 4 Back [id number] Sheila Eubanks MD [facility] Internal Med [address] [place] [address] 12/05/2022 12:21:10 12/05/2022 13:03:04 Essential hypertension 29559101 I10 mildly high, add metoprolol [id number] Sheila Eubanks MD [facility] Internal Med [address] [place] [address] 12/23/2022 09:50:27 12/23/2022 10:53:43 Anxiety 86349365 F41.9 stable Depressive disorder 3548 9007 F32.A stable Essential hypertension 14423890 I10 better Gastroesop hageal reflux disease 445733102 K21.9 meds help Hyperlipidemia 47597666 E78.5 stable Malignant neoplasm of skin 696261501 C44.90 no recurrence Obesity 260827477 E66.9 has lost some Osteoarthritis 905061895 M19.90 otc , local ointments Adult heal th examination 277169063 Z00.00 Colonoscop y 08/27Mammog bernadette- 2DEX A- 12/2021FLU - 2COV ID- 08/26/20, 09/22/20 and 1 boosterHad both pneumovax Screening mammography 24 154227 Z12.31 Depression screening 171 977014 Z13.31 neg Long-term drug therapy 579411888 Z79.737 [id number] Sheila Eubanks MD [facility] Internal Med [address] [place] [address] 04/28/2023 10:38:52 04/28/2023 11:59:22 Adult health examination 919095876 Z00.00 Z13.220 Colonoscop y 08/27Mammog bernadette- EX A- 12/2021FLU - 03/2022, OV ID- 08/26/20, 09/22/20 and 1 booster, 03/2023Had both pneumovax Anxiety 79902458 F41.9 stable Depressive disorder 3548 9007 F32.A ^ THE DOSE Essential hypertension 83414219 I10 UNDER CONTROL Gastroesop hageal reflux disease 269840860 K21.9 meds help Hyperlipidemia 63304242 E78.5 stable Malignant neoplasm of skin 653072781 C44.90 no recurrence Obesity 556996643 E66.9 advised to watch diet Osteoarthritis 144934423 M19.90 otc , local ointments Kidney disease 81660368 N08 more water, labs next time [id number] Sheila Eubanks MD [facility] Internal Med [address] [place] [address] 08/25/2023 10:33:21 08/25/2023 11:39:30 Gastroesophageal reflux disease 511804138 K21.9 meds help Adult heal th examination 004701699 Z00.00 Z13.220 Colonoscop y 08/27Mammog bernadette- 01/15/2023 DEXA- 12/2021FLU - 03/2022, 3COV ID- 08/26/20, 09/22/20 and 1 booster, 03/2023Had both pneumovax Anxiety 42711640 F41.9 better Depressive disorder 3548 9007 F32.A better Essential hypertension 94350075 I10 under control Hyperlipidemia 95376313 E78.5 stable Malignant neoplasm of skin 551562601 C44.90 no recurrence Obesity 786326658 E66.9 advised to watch diet Osteoarthritis 073405113 M19.90 otc , Kidney disease 99987871 N08 more water, labs Chronic ki dney disease 033060846 N18.9 [id number] Sheila Eubanks MD [facility] Internal Med [address] [place] [address] 10/01/2023 14:00:31 10/01/2023 14:10:30 Submammary intertrigo 173434300 L30.4 [id number] Sheila Eubanks MD [facility] Internal Med [address] [facility] [place] [address] 12/29/2023 11:16:35 12/29/2023 12:19:27 Gastroesophageal reflux disease 443151324 K21.9 needs meds daily Adult heal th examination 134883482 Z00.00 Z13.220 Colonoscop y 08/27Mammog bernadette- 01/15/2023 - OrderedDEX A- 12/13/2021 - DUEFLU- 03/2022, OV ID- 08/26/20, 09/22/20 and 1 booster, 03/2023Had both pneumovax Anxiety 70634409 F41.9 meds help Depressive disorder 3548 9007 F32.A meds help Essential hypertension 95760810 I10 under control Hyperlipidemia 56521087 E78.5 stable Malignant neoplasm of skin 631937414 C44.90 no recurrence Obesity 994133267 E66.9 advised to watch diet and lose Osteoarthritis 566817632 M19.90 otc , Kidney disease 74574303 N08 GFR 54, drink more water Screening mammography 24 349696 Z12.31 Screening for osteoporosis 319201522 Z13.820 Long-term drug therapy 226991387 Z79.899 Screening for disorder 439293676 Z13.9 [id number] Sheila Eubanks MD [facility] Internal Med [address] [facility] [place] [address] 04/26/2024 11:52:50 04/26/2024 12:38:46 Essential hypertension 95870908 I10 under control Gastroesop hageal reflux disease 924104594 K21.9 needs meds daily Adult heal th examination 844660528 Z00.00 Z13.220 Colonoscop y 08/27Mammog bernadette- 02/23/2024 DEXA- 02/23/2024 FLU- 04/26/2024 COVID- 08/26/20, 09/22/20 and 1 booster, 03/2023Had both pneumovax Anxiety 22588137 F41.9 meds help Depressive disorder 3548 9007 F32.A meds help Hyperlipidemia 82537982 E78.5 under control Malignant neoplasm of skin 962930605 C44.90 no recurrence Obesity 713147956 E66.9 advised to watch diet and lose Osteoarthritis 544822998 M19.90 getting worse, limping, to see ortho dr samuel Kidney disease 44425191 N08 GFR 54, drink more water Administra tion of influenza vaccine 39155090 Z23 [id number] Sheila Eubanks MD [facility] Med [address] [facility] [place] [address] 08/24/2024 11:28:49 08/24/2024 12:10:56 Essential hypertension 86313751 I10 under control Gastroesop hageal reflux disease 905275041 K21.9 needs meds daily Adult heal th examination 999853302 Z00.00 Z13.220 Colonoscop y 08/27Mammog bernadette- 02/23/2024 DEXA- 02/23/2024 FLU- 03/2022, 03/2023, 04/26/2024 COVID- 08/26/20, 09/22/20 and 1 booster, 03/2023Had both pneumovax Anxiety 85308360 F41.9 meds help Depressive disorder 3548 9007 F32.A meds help Hyperlipidemia 35090655 E78.5 stable Malignant neoplasm of skin 943625942 C44.90 no recurrence Obesity 217858614 E66.9 advised to watch diet and lose Osteoarthritis 787437064 M19.90 otc , Kidney disease 95926748 N08 GFR 54, [id number] MATT Bradshaw [facility] [place] [address] [place] [address] 09/07/2024 11:20:33 09/07/2024 12:14:07 Impacted cerumen in left ear 3991546050 868238 H61.22 left cerumen impaction removed with a combinatio n irrigation , suction, alligator forceps, and a curette device. Feeling of lump in throat 800469643 R09.89 continue taking PPI as previously prescribed . Health Concerns Section Related Observation LastModified by Organization Detai ls LastModified Time None Recorded Concern Status LastModified by Organization Details LastModified Time None Recorded Advance Directives Directive Y: will bring in copy, remin ded on 12/29/2023 Payers Encounter Date Sequence Insurance Name Policy Number Policy Ayers Covered Member ID Ayers Member ID Guarantor Name 10/01/2023 1 [facility] (MEDICARE REPLACEMENT/A DVANTAGE - PPO) [id number] Henny J Jeff [id number] Henny J Jeff 12/29/2023 1 [facility] (MEDICARE REPLACEMENT/A DVANTAGE - PPO) [id number] Henny J Jeff [id number] Henny J Jeff 04/26/2024 1 [facility] (MEDICARE REPLACEMENT/A DVANTAGE - PPO) [id number] Henny J Jeff [id number] Henny J Jeff 08/24/2024 1 [facility] (MEDICARE REPLACEMENT/A DVANTAGE - PPO) [id number] Henny J Jeff [id number] Henny J Jeff 09/07/2024 1 [facility] (MEDICARE REPLACEMENT/A DVANTAGE - PPO) [id number] Henny J Jeff [id number] Henny J Jeff Notes Date Note Type Note Provider Name and Address Organization Details Recorded Time 10/01/2023 text/html Pt is here today for a rash under her left breast.Has been there a little over a week and applying benadryl gel.not getting better Sheila Eubanks MD [address] [place] [address], [facility] [address], [place], [address], [facility] [employer] 10/01/2023 14:16:04 12/29/2023 text/html Pt is here for 4 month f/u. Pt has no major concerns, but stated she is dealing with stress, due to taking care of her disable .Medicare Wellness Exam HTN- under control with with medsMeds- Lisinopril 20 mg/HCTZ 25 mg daily , metoprolol ER 25 mg qdGERD- better with meds, needs dailyMeds- Pantoprazole 40 mg dailyHyperlipidemia- on meds , labs dueMeds- Rosuvastatin 5 mg dailyDepression- mood and anxiety better, has tried escitalopram ,Meds- Bupropion 300 mg qdOsteoarthritis- aleve helps, s/p steroid shot in the past Low GFR of 54 (08/25/23), drinking more water, avoiding aleve/NSAIDSObesity- advised to lose , Has lost 2 lbsshe had hysterectomy and bladder surgery and hernia repair in the past.h/o skin cancer, skin mole removed not cancer, gets derm check up regularly Sheila Eubanks MD [address], [place], [address], [facility] [employer] 12/30/2023 08:40:27 04/26/2024 text/html Pt is here for 4 month f/u. Pt has no major concerns, but stated she is dealing with stress, due to taking care of her disable .PT IS NOT FASTING ( [facility] )Also would like a handicap form signed for her. HTN- under control with with medsMeds- Lisinopril 20 mg/HCTZ 25 mg daily , metoprolol ER 25 mg qdGERD- better with meds, needs dailyMeds- Pantoprazole 40 mg dailyHyperlipidemia- on meds , labs good 12/29Meds- Rosuvastatin 5 mg dailyDepression- mood and anxiety under control, has tried escitalopram ,Meds- Bupropion 300 mg qdOsteoarthritis- knees and hips, s/p steroid shot in the past , tylenol arthritis, left hip is getting worse and to see ortho Low GFR of 54 (08/25/23), drinking more water, avoiding aleve/NSAIDSObesity- advised to lose ,she had hysterectomy and bladder surgery and hernia repair in the past.h/o skin cancer, skin mole removed not cancer, gets derm check up regularly Sheila Eubanks MD [address], [place], [address], [employer] 04/27/2024 17:14:59 08/24/2024 text/html Pt is here for 4 month f/u. Pt has no major concerns, but stated she is dealing with stress, due to admitting her at a skilled nursing, On Buspirone and helps. HTN- under control with with medsMeds- Lisinopril 20 mg/HCTZ 25 mg daily , metoprolol ER 25 mg qdGERD- better with meds, needs it daily to relieve symptomsMeds- Pantoprazole 40 mg dailyHyperlipidemia- on meds , labs good 12/29Meds- Rosuvastatin 5 mg dailyDepression- mood and anxiety better, has tried escitaloprammeds seems to be helping, not crying as muchMeds- Bupropion 300 mg qd, Buspirone 15mg Osteoarthritis- aleve helps, s/p steroid shot in the past, see dr arabella Castelan GFR of 54 (12/29), drinking more water, avoiding aleve/NSAIDSObesity- advised to lose , Has lost 3 lbsshe had hysterectomy and bladder surgery and hernia repair in the past.h/o skin cancer, gets derm check up regularly Sheila Eubanks MD [address], [place], [address], [employer] 08/24/2024 11:58:43 09/07/2024 text/html This patient has a past medical history significant for hyperlipidemia, obesity, anxiety, depression, HTN, GERD, OA, and skin cancer who presents to the office with a complaint of left otalgia that began approximately 3 days ago. Denies use of any medications symptom management. She also reports some feeling of something in her throat and occasional difficulty swallowing that has been intermittent. She does note that this all began proximally one-week ago after the recent loss of her spouse. She states that she has been very emotional and believes that her throat symptoms may be in relation to crying often. She notes that if her symptoms do continue to persist over the next several weeks that she will see her PCP to discuss a possible GI referral MATT Bradshaw [address], [place], [address], [employer] 09/07/2024 12:13:24 OBGyn Episode No OBEpisode recorded.
--- OUTSIDE RECORDS SUMMARY | 2024-09-08 22:31 | XMS_ITS | Clinical Summary ---
Author Organization [facility] Address [address] [place] [phone] Care Team Providers Care Lead Sprinkler Name Role Phone Unavailable Primary Care Provider Unavailabl e Encounters Date Type Department Care Team Description 08/24/2024 External Device Data ST[facility] ABSTRACTION Provider, Abstract 08/13/2024 External Device Data [facility] ABSTRACTION Provider, Abstract 08/12/2024 External Device Data [facility] ABSTRACTION Provider, Abstract 08/10/2024 External Device Data [facility] ABSTRACTION Provider, Abstract 07/27/2024 External Device Data [facility] ABSTRACTION Provider, Abstract 07/06/2024 External Device Data [facility] ABSTRACTION Provider, Abstract 06/30/2024 External Device Data [facility] ABSTRACTION Provider, Abstract from Last 3 Months Social History Tobacco Use Types Packs/Day Years Used Date Smoking Tobacco: Never Assessed Comments No Sex and Gender Information Value Date Recorded Sex Assigned at Not on file 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[employer] Gender Identity Not on file Sexual Orientation Not on file Plan of Treatment Health Maintenance Due Date Last Done Comments FIT-DNA Q 3 years 1997 FIT/FOBT Q 1 year 1997 Flex Sig/CT Colonography Q 5 years 1997 ZOSTER VACCINE (1 of 2) 2002 INFLUENZA VACCINE (#1) 2024 2, 03/19/2021, 02/29/2020 BREAST CANCER SCREENING 02/22/2025 02/23/20 24, 01/15/2023, 12/13/2021, Additional history exists DTAP/TDAP/TD VACCINES (2 - T d or Tdap) 07/17/2025 07/17/2015 RSV VACCINE (60+ or ) (1 - 1-dose 75+ series) 2027 COLORECTAL SCREENING 08/12/2031 08/11/2021 Colorectal Cancer Screening 08/12/2031 PNEUMOCOCCAL VACCINE 50+ YEARS Completed 07/30/2020 , 07/20/2018 OSTEOPOROSIS SCREENING Completed 02/23/2024, 2021 Procedures Procedure Name Priority Date/Time Associated Diagnosis Comments MAMMO 3D PEPE SCREEN BILAT W OR WO CAD Routine 02/23/2024 9:56 AM CDT Encounter for screening mammogram for malignant neoplasm of breast CT BONE DENS STUDY 1+ SITE AXIAL Routine 02/23/2024 9:53 AM CDT Encounter for screening for osteoporosis from Last 3 Months or Most Recently Relevant to Health Maintenance Results * MAMMO 3D PEPE SCREEN BILAT W OR WO CAD (02/23/2024 9:56 AM CDT) Anatomical Region Laterality Modality Breast Bilateral Mammography 02/23/2024 9:57 AM CDT Impressions 02/23/2024 10:02 AM CDT IMPRESSION: BI-RADS Category 2, benign mammogram. Recommend yearly bilateral screening mammogram. Narrative 02/23/2024 10:02 AM CDT EXAM: MAMMO 3D PEPE SCREEN BILAT W OR WO CAD DATE: 02/23/2024 CLINICAL HISTORY: Screening in an asymptomatic patient with a family history of breast cancer TECHNIQUE: Bilateral full field digital mammography and digital tomosynthesis were performed in the CC and MLO projections. Comparison was made to prior bilateral mammograms performed January 15, 2023, December 13, 2021, August 06, 2020, June 22, 2019 and April 02, 2018. CAD was utilized. FINDINGS: Scattered fibroglandular densities are present. The parenchymal pattern is unchanged compared to the prior exams. Scattered bilateral focal asymmetries are unchanged compared to multiple prior exams. There is no new suspicious asymmetry or mass, area of architectural distortion or suspicious microcalcification. us Dany Eubanks MD MAMMO ORDERABLES Final Result * CT BONE DENS STUDY 1+ SITE AXIAL (02/23/2024 9:53 AM CDT) Anatomical Region Laterality Modality Computed Tomogra phy 02/23/2024 9:53 AM CDT Narrative 02/23/2024 9:56 AM CDT Exam: CT BONE DENS STUDY 1+ SITE AXIAL Date: 02/23/2024 INDICATION: Screening Attached is the QCT Bone Mineral Density Reports for the listed patient. For the spine, a true volumetric BMD measurement was made and, rather than using T-Scores, was compared to guideline thresholds from the [employer]. For the hip, a DXA-equivalent T-Score was calculated for comparison to the WHO classification at the proximal femur. This T-Score may also be used for fracture risk probability calculation in the WHO FRAX tool with T-Score as the appropriate DXA setting. INCIDENTAL LIMITED CT FINDINGS: Diverticula are noted in the sigmoid colon without evidence of acute diverticulitis seen. It appears that the gallbladder and uterus have been removed. Procedure Note Basim Melissa MD - 02/23/2024 Exam: CT BONE DENS STUDY 1+ SITE AXIAL Date: 02/23/2024 INDICATION: Screening Attached is the QCT Bone Mineral Density Reports for the listed patient. For the spine, a true volumetric BMD measurement was made and, rather than using T-Scores, was compared to guideline thresholds from the [employer]. For the hip, a DXA-equivalent T-Score was calculated for comparison to the WHO classification at the proximal femur. This T-Score may also be used for fracture risk probability calculation in the WHO FRAX tool with T-Score as the appropriate DXA setting. INCIDENTAL LIMITED CT FINDINGS: Diverticula are noted in the sigmoid colon without evidence of acute diverticulitis seen. It appears that the gallbladder and uterus have been removed. Dany Eubanks MD CT ORDERABLES Final Result from Last 3 Months or Most Recently Relevant to Health Maintenance Insurance [employer] [facility] [employer] PPO [id number] [place] [phone]
--- OUTSIDE RECORDS SUMMARY | 2024-09-08 22:31 | XMS_ITS | Clinical Summary ---
Author Organization [facility] Address [facility] [facility] [place] [address] Care Team Providers Care Country Sales Manager Name Role Phone Dany Eubanks MD Primary Care Provider Source Comments [facility],non-[facility] health Affiliates and Associated Physician Practices is amultiple site organization consisting of ambulatory clinics and hospital sitesin [place], [place], [place] and [place]. This disclosure is being madepursuant to the Care Everywhere program and may not contain all information available regarding this patient. Last updated 18.[facility] Active Problems Problem Noted Date Diagnosed Date Closed wedge compression fracture of first lumba r vertebra 06/27/2015 Social History Tobacco Use Types Packs/Day Years Used Date Smoking Tobacco: Never Alcohol Use Standard Drinks/Week Comments No 0 (1 standard drink = 0.6 oz pur e alcohol) Sex and Gender Information Value Date Recorded Sex Assigned at Not on file Gender Identity Not on file Sexual Orientation Not on file Last Filed Vital Signs Vital Sign Reading Time Taken Comments Blood Pressure 124/89 06/27/2015 12:00 PM RN CCU Pulse 81 06/27/2015 12:00 PM RN CCU Temperature 37.3 C (99.2 F) 06/26/2015 6:47 PM RN CCU Respiratory Rate 19 06/27/2015 12:00 PM RN CCU Oxygen Saturation 97% 06/27/2015 12:00 PM RN CCU Inhaled Oxygen Concentration - - Weight 81.6 kg (180 lb) 11/12/2015 9:22 AM CDT Height 165.1 cm (5' 5 ) 11/12/2015 9:22 AM CDT Body Mass Index 29.95 11/12/2015 9:22 AM CDT Plan of Treatment Health Maintenance Due Date Last Done Comments BONE DENSITY TESTING 1952 COLOGUARD (AGES 45-75) - COL ON CA SCREENING 1952 COLON MONITORING 1952 COLONOSCOPY - COLON CA SCREENING 1952 CT COLONOGRAPHY - COLON CA SCREENING 1952 Colorectal Cancer Screening 1952 FIT - COLON CA SCREENING 1952 FLEX SIG - COLON CA SCREENING 1952 LIPID TESTING 1952 MAMMOGRAM 1952 HEPATITIS C SCREENING 06/10/1970 DTAP/TDAP/TD VACCINES (1 - Tdap) 1971 PNEUMOCOCCAL VACCINE 50+ (1 of 1 - PCV) 2002 ZOSTER VACCINE (1 of 2) 2002 COVID-19 VACCINE ( - 2023-2 5 season) 2024 INFLUENZA VACCINE (#1) 2024 DEPRESSION SCREENING 06/08/2024 Respiratory Syncytial Virus (RSV) Vaccine Pt: or over 60 yrs (1 - 1-dose 75+ series) 2027 HEPATITIS B VACCINE Aged Out No longe r eligible based on patient's age to complete this topic HIB VACCINE Aged Out No longer eligi ble based on patient's age to complete this topic HPV VACCINE Aged Out No longer eligi ble based on patient's age to complete this topic MENINGOCOCCAL (Group B) VACC INE SHARED DECISION-MAKING Aged Out No longer eligibl e based on patient's age to complete this topic MENINGOCOCCAL GROUPS A/C/Y/W VACCINE Aged Out No longer eligible b ased on patient's age to complete this topic Care Teams Country Sales Manager Relationship Specialty Start Date End Date Dany Eubanks MD [address] [place] [address] [address] [place] [address] PCP - General 07/04/15
--- OUTSIDE RECORDS SUMMARY | 2024-09-08 22:31 | XMS_ITS | Encounter Summary ---
Author Organization [facility] Address [address] [place] [address] Care Team Providers Care Strike Plate Attacher Name Role Phone Dany Eubanks MD Primary Care Provider Shae Cohn GRAIN BUYER-NETWORK INTELLIGENCE ANALYST Unavailable [phone] Encounter Details Date Type Department Care Team (Late st Contact Info) Description 11/11/2022 Lab Requisition [facility] - DermPath Lab [address] [facility], [place] [id number] Leo Cleary MD [address] [place] [address] Social History Tobacco Use Types Packs/Day Years Used Date Smoking Tobacco: Never Alcohol Use Standard Drinks/Week Comments No 0 (1 standard drink = 0.6 oz pur e alcohol) Sex and Gender Information Value Date Recorded Sex Assigned at Not on file Gender Identity Not on file Sexual Orientation Not on file documented as of this encounter Plan of Treatment Not on file documented as of this encounter Procedures Procedure Name Priority Date/Time Associated Diagnosis Comments DERMATOPATHOLOGY Routine 11/11/2022 12:0 0 AM CDT documented in this encounter Results * DERMATOPATHOLOGY (11/11/2022 12:00 AM CDT) Case Report Dermatopathology Report Case: [id number] Authorizing Provider: Leo Cleary MD Collected: 11/11/2022 12:00 AM Ordering Location: [facility] DermPath Lab Received: 11/11/2022 04:48 PM Pathologist: Marisol Cohn MD Specimen: Skin, left thigh 2:58 PM CDT DERMATOPATHOLOGY LABORATORY Final Diagnosis Specimen A. SKIN, left thigh: BENIGN VERRUCOUS KERATOSIS, INFLAMED (L82.1) 3 2:58 PM CDT DERMATOPATHOLOGY LABORATORY Clinical History SCCA vs. VV vs. SK. Path# [id number] 3 2:58 PM CDT DERMATOPATHOLOGY LABORATORY Gross Description Specimen A: Received is one formalin filled container labeled with the patient's name and designated left thigh. The specimen consists of a shave biopsy measuring [id number] and it is bisected. Jar 0. 2:58 PM CDT DERMATOPATHOLOGY LABORATORY Microscopic Description Specimen A. SKIN, left thigh: Sections show hyperkeratosis, papillomatosis, hypergranulosis, and acanthosis. Inflammatory cells are present within the dermis. These histological findings can be seen in a verruca vulgaris or a seborrheic keratosis. 3 2:58 PM CDT DERMATOPATHOLOGY LABORATORY Disclaimer An external and internal positive and negative controls are appropriate for the histochemical, immunohistochemical and immunofluorescence stain(s) in this case (if any), except where stated explicitly. The performance characteristics of the stain(s) cited in this report were developed and its performance characteristic determined by the Dermatopathology Laboratory at [facility], directed by Dr. Cristina Tirado. These tests need not be, and therefore are not, approved by the [place] Food and Drug Administration. The tests are used for clinical purposes. Billing Codes Specimen Charges Stain Charges 09386 1 3 2:58 PM CDT DERMATOPATHOLOGY LABORATORY Embedded Images 2:58 PM CDT DERMATOPATHOLOGY LABORATORY Pathology/Cytolog y TISSUE SPECIMEN FROM SKIN / Unknown 11/11/2022 11/11/2022 4:48 PM CDT Leo Cleary MD LAB - PATHOLOGY/CYTO LOGY ORDERABLES DERMATOPATHOLOGY LABORATORY [facility] - Department of Dermatology [place] [address] [facility], [address] [phone] documented in this encounter Visit Diagnoses Not on filedocumented in this encounter Care Teams Strike Plate Attacher Relationship Specialty Start Date End Date Dany Eubanks MD [address] [facility] [address] [place] [phone] PCP - General 07/04/15 Shae Cohn, ESTHER-NETWORK INTELLIGENCE ANALYST [address] [facility] [phone] PCP - Attributed-[facility] 08/07/23 documented as of this encounter
--- OUTSIDE RECORDS SUMMARY | 2024-09-08 22:32 | XMS_ITS | Referral Summary ---
Author Organization [address] Address [address] [place] [phone] Care Team Providers Care Call Center Recruiter Name Role Phone Unknown, Notinfile Primary Care Provider Unavail able Allergies No known active allergies Medications buPROPion XL (WELLBUTRIN XL) 150 mg 24 hr tablet bupropion HCl XL 150 mg 24 hr tablet, extended release Active dicyclomine (BENTYL) 10 mg capsule dicyclomine 10 mg capsule Active ergocalciferol (VITAMIN D) 50,000 unit capsule Vitamin D2 1,250 mcg (50,000 unit) capsule Active escitalopram (LEXAPRO) 10 mg tablet escitalopram 10 mg tablet Active lisinopriL (PRINIVIL,ZEST RIL) 20 mg tablet lisinopril 20 mg tablet Take 1 tablet every day by oral route. 5 Active lisinopril-hyd roCHLOROthiazi de (ZESTORETIC) 20-25 mg per tablet lisinopril 20 mg-hydrochlorothi azide 25 mg tablet Active pantoprazole DR (PROTONIX) 40 mg EC tablet pantoprazole 40 mg tablet,delayed release Active rosuvastatin (CRESTOR) 5 mg tablet rosuvastatin 5 mg tablet Active triamcinolone (KENALOG) 0.025 % cream triamcinolone acetonide 0.025 % topical cream Active Active Problems Problem Noted Date Diagnosed Date Abdominal pain 07/21/2022 Cataract 07/21/2022 Cellulitis 07/21/2022 Essential hypertension 07/21/2022 Female cystocele 07/21/2022 Hyperlipidemia 07/21/2022 Incomplete uterovaginal prolapse 07/21/2022 Inguinal pain 07/21/2022 Laceration of skin 07/21/2022 Liver cyst 07/21/2022 Malignant neoplasm of skin 07/21/2022 Obesity 07/21/2022 Osteoarthritis 07/21/2022 Rash 07/21/2022 Infected sebaceous cyst 06/26/2022 Gastroesophageal reflux disease without esophagi tis 11/01/2021 Anxiety 07/05/2021 Depressive disorder 07/05/2021 Closed wedge compression fracture of first lumba r vertebra 06/27/2015 Social History Tobacco Use Types Packs/Day Years Used Date Smoking Tobacco: Never Tobacco Cessation:Counseling Given: Not Answered Personal Safety Answer Date Recorded Getting School Help Needed Not on file 06/14 Comments Unknown Sex and Gender Information Value Date Recorded Sex Assigned at Not on file Legal Sex Female 9:25 PM DRAMATIC TEACHER Gender Identity Not on file Sexual Orientation Not on file Last Filed Vital Signs Vital Sign Reading Time Taken Comments Blood Pressure 108/80 07/21/2022 4:58 PM DRAMATIC TEACHER Pulse 108 07/21/2022 4:58 PM DRAMATIC TEACHER Temperature 38 C (100.4 F) 07/21/2022 4:58 PM DRAMATIC TEACHER Respiratory Rate 20 07/21/2022 4:58 PM DRAMATIC TEACHER Oxygen Saturation 94% 07/21/2022 4:58 PM DRAMATIC TEACHER Inhaled Oxygen Concentration - - Weight 88.5 kg (195 lb) 07/21/2022 4:58 PM DRAMATIC TEACHER Height 165.1 cm (5' 5 ) 07/21/2022 4:58 PM DRAMATIC TEACHER Body Mass Index 32.45 07/21/2022 4:58 PM DRAMATIC TEACHER Plan of Treatment Not on file Insurance [employer] PPO [id number] [place] [id number] Care Teams Call Center Recruiter Relationship Specialty Start Date End Date Unknown, Notinfile PCP - General 07/21/22
--- OUTSIDE RECORDS SUMMARY | 2024-09-08 22:32 | XMS_ITS | Continuity of Care Document ---
Author Organization MD - [facility] [employer] [facility], [facility] [place] Address [address] [place] [address] Care Team Providers Care Hand Laster Name Role Phone SHEILA EUBANKS Primary Care Provider Assessment No assessment recorded. Plan of Treatment Reminders Order Date Submit Date Provider Last Modified By Organization Details Last Modified Time Details Appointments Medicare Wellness 15 2024 09:30A M Sheila Eubanks MD Not available Not available Not available Lab None recorded. Referral None recorded. Procedures removal impacted cerumen requiring instrumen tation (PROC) 2024 04 025 [email or web address] Not available 09/08/2024 10:17:20 Surgeries None recorded. Imaging None recorded. Medication Orders None recorded. Patient TargetsNo targets recorded. Patient Instructions Encounter Date Encounter Id Patient Instructions Last Modified By Organization Details Last Modified Time 09/07/2024 [id number] advised that if her throat symptoms continue to persist in several weeks to follow up with her PCP for a GI referral. Discussed that her symptoms are likely due to the recent loss of her spouse. [email or web address] Not available 09/07/2024 12:13:19 Reason for Referral None Reported. Problems Name Problem SNOMED Code Status Onset Date Resolution Date Notes Provider Name and Address Organization Details Recorded Time Inguinal pain 230698156 Completed Not Available [facility] 3 06:14:32 Pressure ulcer of left foot stage 1 Active 2021 Not Available [facility] 3 13:48:13 Fracture of lumbar spine 251556166 Completed Not Available [facility] 3 06:14:32 Celluliti s 258622958 Completed Not Available [facility] 3 06:14:32 Disorder of lower leg 158771610 Completed 202112/16/2021 Not [address] [facility] 3 06:14:32 Mammograp hy abnormal 700792216 Completed Not Available [facility] 3 06:14:32 Cataract 413036311 Active Not Available [facility] 3 13:48:13 Incomplet e uterovagi nal prolapse 454907207 Active Not Available [facility] 3 13:48:13 Abdominal pain 51328792 Completed Not Available [facility] 3 06:14:33 Gastroeso phageal reflux disease 528801486 Active Not Available [facility] 3 13:48:13 Cystocele 867820577 Active Not Available [facility] 3 13:48:13 Infection of sebaceous cyst 467334112 Active 2022 Not Available [facility] 3 13:48:13 Infected insect bite 015806964 Completed 202112/16/2021 Not [address] [facility] 3 06:14:33 Gastroeso phageal reflux disease without esophagit is 422767314 Completed 202108/08/2022 ROBERT Reis, MD [employer] [facility] [employer] [facility] 3 11:18:16 Adult health examinati on Active 2021 Sheila Eubanks MD [address], [place], [address] , [facility] [employer] [facility] 4 11:37:02 Eruption 226819143 Completed Sheila Eubanks MD [address], [place], [address] , [employer] [facility] [employer] [facility] 4 14:11:40 Laceratio n of skin 444693739 Completed Not Available [facility] 3 06:14:33 Screening for malignant neoplasm of colon Completed 202112/16/2021 Not [address] [facility] 3 06:14:33 Screening for osteoporo sis Completed 202107/11/2022 Not [address] [facility] 3 06:14:34 Screening for osteoporo sis Completed 202112/16/2021 Not [address] [facility] 3 06:14:34 Depressiv e disorder 32228997 Active 2021 Not Available [facility] 3 13:48:13 Malignant neoplasm of skin 524171852 Active Not Available [facility] 3 13:48:13 Osteoarth ritis 100487085 Active Not Available [facility] 3 13:48:13 Obesity 983506908 Active Not Available [facility] 3 13:48:13 Epidermoi d cyst of skin 386270860 Completed Twila mejia RMA null, [place] [facility] [place] [facility] 4 14:02:45 Disorder of urinary bladder 55560984 Completed Not Available [facility] 3 06:14:34 Anxiety 14664836 Active 2021 Not Available [facility] 3 13:48:13 Hip pain 63258455 Completed Not Available [facility] 3 06:14:35 Hyperlipi demia 64481138 Active Not Available [facility] 3 13:48:13 Essential hypertens ion 89593685 Active Not Available [facility] 3 13:48:13 Liver cyst 60873273 Active Not Available [facility] 3 13:48:13 Ingrowing nail 045167017 Completed 202209/14/2023 Twila mejia RMA null, [place] - [facility] [place] [facility] 4 08:08:30 Epidermoi d cyst of skin 771597480 Completed 202210/01/2023 Twila mejia RMA null, [place] - [facility] [place] [facility] 4 14:02:45 Dysplasti c nevus of skin 428053737 Active 2022 Twila mejia RMA null, [place] - [facility] [place] [facility] 4 14:02:47 Kidney disease 62732496 Active 2022 ROBERT Reis null, [facility] 4 08:08:35 Eruption 709749245 Active 2023 Sheila Eubanks MD [address], [place], [address] , [facility] 4 14:11:40 Submammar y intertrig o 128583934 Active 2023 Sheila Eubanks MD [address], [place], [address] , [facility] 4 14:14:55 Conjuncti vitis 9857564 Active 2023 ROBERT Reis, [facility] 4 17:14:14 Pain of left hip joint 36938289367 9100 Active 2023 Puja José MA null, [facility] 4 15:18:36 Impacted cerumen of bilateral ears 67342985127 71573 Active 2024 Puja José MA null, [facility] 5 10:30:29 Impacted cerumen in left ear 52761784025 62223 Active 2024 MATT Bradshaw [address], [place], [address] , [facility] 5 12:10:17 Feeling of lump in throat 686093097 Active 2024 MATT Bradshaw [address], [place], [address] , [facility] 5 12:10:51 Renal function tests outside reference range 911999457 Active 2024 LESLIE Ramos, [facility] 5 14:53:50 Notes:Some problems listed i n Documents: #[id number], #[id number] could not be added to this patient's chart. Please review these documents and add these problems to the patient's chart manually as needed. Problem Notes None recorded. Procedures Surgical History Date Name Laterality Status Provider Name and Address Organization Details Recorded Time 04/26/20 Medicare Wellness CPT Code, subsequent completed ROBERT Pearson MD [employer] [facility] [employer] [facility] 04/26/2024 12:17:58 12/29/19 Medicare Wellness CPT Code, subsequent completed Safia Villanueva RN [facility] [employer] [facility] 12/29/2023 11:50:43 08/27/19 23 Excision Cyst Multilayer completed Henry mejia MD [address] [place] [address], [address], [facility] [employer] [facility] 08/26/2022 13:27:37 08/27/19 23 excision completed Vinita Sharma MA [facility] [employer] [facility] 09/02/2022 11:17:15 07/01/19 23 incision and drainage completed Not Available [facility] 08/06/2022 06:08:21 12/14/19 22 Most Recent Bone Density completed Not Available [facility] 08/06/2022 06:08:19 08/13/19 22 Date of Last Colonoscopy completed Not Available [facility] 08/06/2022 06:08:19 other completed Not Available [facility] 08/06/2022 06:08:21 Hysterectomy completed Not Available [facility] 08/06/2022 06:08:21 Hernia Surgery completed Not Available [facility] 08/06/2022 06:08:21 Cholecystectomy completed Not Available [facility] 08/06/2022 06:08:21 Imaging Results None recorded. Procedure Notes None recorded. Medical Equipment None [...] administ ered by the provider 07/30 completed [facility]: [id number] 4-20 Not Available Not Available Not Available cephalexi [...] extended release TAKE 1 TABLET EVERY DAY 11/21 /2023 completed Not Available Not Available Not Available Vitamin D3 OTC- QD 2020 active Not Available Not Available Not Avai lable multivita min active Not Available Not Available Not Available lidocaine (PF) 10 mg/mL (1 %) injection solution In office injectio n administ ered by the provider 07/30 completed [facility]: 0409-427 6-17 Not Available Not Available Not Available cholecalc [...] Updated DateTime 09/07/2024 165.1 cm 32.6 kg/m2 68699.1 g 98 [degF] Shae Rivera RN [facility] [employer] 09/07/2024 11:32:24 Social History Question Answer Notes LastModified by Organization Details LastModified Time Tobacco Smoking Status Never Smoker Mimi De La Torre RCP null, MD [employer] [facility] [employer] 08/26/2022 12:25:40 Do You Have An Advance Directive? Yes Will Bring In Copy, Reminded On 12/29/2023 [email or web address] Information not available 12/29/2023 What Is Your Level Of Alcohol Consumption? None [id number] Information not available 08/06/2022 Are You Blind Or Do You Have Difficulty Seeing? No [email or web address] Information not available 08/26/2022 Is Blood Transfusion Acceptable In An Emergency? Yes [email or web address] Information not available 12/29/2023 What Is Your Level Of Caffeine Consumption? Heavy [email or web address] Information not available 12/29/2023 What Is Your Code Status? Other [email or web address] Information not available 12/29/2023 In The 14 Days Before Symptom Onset, Have You Had Close Contact With A Laboratory-conf irmed COVID-19 While That Case Was Ill? No Not Applicable [email or web address] Information not available 12/29/2023 In The 14 Days Before Symptom Onset, Have You Had Close Contact With A Person Who Is Under Investigation For COVID-19 While That Person Was Ill? No Not Applicable [email or web address] Information not available 12/29/2023 Are You Currently Employed? No [email or web address] Information not available 12/29/2023 Are You Deaf Or Do You Have Serious Difficulty Hearing? No [email or web address] Information not available 08/26/2022 What Type Of Diet Are You Following? REGULAR [id number] Information not available 08/06/2022 What Is The Highest Grade Or Level Of School You Have Completed Or The Highest Degree You Have Received? TX06305-2 [email or web address] Information not available 08/26/2022 What Is Your Occupation? Retired [email or web address] Information not available 08/26/2022 How Many Days Of Moderate To Strenuous Exercise, Like A Brisk Walk, Did You Do In The Last 7 Days? 0 [email or web address] Information not available 12/29/2023 Have There Been Any Changes To Your Family Or Social Situation? Yes Stress Related To Spousal Care Has Increaseed [email or web address] Information not available 12/29/2023 What Is The Fluoride Status Of Your Home? Fluoridated Information not available 08/26/2022 Are There Any Guns Present In Your Home? Yes [email or web address] Information not available 08/26/2022 Do You Use Insect Repellent Routinely? Yes [email or web address] Information not available 12/29/2023 Where Do You Live? SingleLevelHouse [email or web address] Information not available 08/26/2022 Presence Of Domestic Violence No [email or web address] Information not available 12/29/2023 Guns Present In The Home? Yes [email or web address] Information not available 12/29/2023 Are You Able To Care For Yourself? Yes [email or web address] Information not available 12/29/2023 Are You Blind Or Do Yo Have Difficulty Seeing? No [email or web address] Information not available 12/29/2023 Are You Deaf Or Do You Have Serious Difficulty Hearing? No [email or web address] Information not available 12/29/2023 General Stress Level? High [email or web address] Information not available 12/29/2023 Live Alone Of With Others? With Others [email or web address] Information not available 12/29/2023 Do You Have A Medical Power Of Stainless Steel Finisher? Yes [email or web address] Information not available 12/29/2023 What Was The Date Of Your Most Recent Tobacco Screening? 12/29/2023 [email or web address] Information not available 12/29/2023 How Many Children Do You Have? 2 [email or web address] Information not available 12/29/2023 Do You Have Any Pets? No [email or web address] Information not available 12/29/2023 What Is Your Relationship Status? [id number] Information not available 08/06/2022 Do You Use Your Seat Belt Or Car Seat Routinely? Yes [email or web address] Information not available 08/26/2022 Are You Sexually Active? No [email or web address] Information not available 12/29/2023 Do You Have Smoke And Carbon Monoxide Detectors In Your Home? Yes [email or web address] Information not available 08/26/2022 Are You Passively Exposed To Smoke? Yes [email or web address] Information not available 12/29/2023 Are There Any Smokers In Your House? Yes [email or web address] Information not available 08/26/2022 What Types Of Sporting Activities Do You Participate In? None [email or web address] Information not available 12/29/2023 Do You Feel Stressed (tense, Restless, Nervous, Or Anxious, Or Unable To Sleep At Night)? [id number] Increased Stressors From Becoming A Care Provider To [email or web address] Information not available 12/29/2023 Do You Use Any Illicit Or Recreational Drugs? No [email or web address] Information not available 08/26/2022 Do You Use Sunscreen Routinely? Yes [email or web address] Information not available 08/26/2022 Has Tobacco Cessation Counseling Been Provided? No [email or web address] Information not available 12/29/2023 Have You Recently Traveled Abroad? No [email or web address] Information not available 08/26/2022 Do You Have Any Dietary Restrictions? No [email or web address] Information not available 08/26/2022 Do You Or Have You Ever Used Any Other Forms Of Tobacco Or Nicotine? No [email or web address] Information not available 08/26/2022 Sex: Unknown Functional Status Question Answer Note LastModified by Organizat ion Details LastModified Time Do you have difficulty walking or climbing stairs? Yes related to hip/back pain [email or web address] Information not available 12/29/2023 Do you have transportation difficulties? No Information not available 08/26/2022 Are you able to walk? YESWOREST [email or web address] Information not available 08/26/2022 Do you have difficulty doing errands alone? No [email or web address] Information not available 08/26/2022 Are you able to care for yourself? Yes [email or web address] Information n ot available 08/26/2022 Do you have difficulty dressing or bathing? No [email or web address] Information not available 08/26/2022 What is your exercise level? None [email or web address] Information not available 12/29/2023 Mental Status Question Answer Note LastModified by Organization D etails LastModified Time Do you have difficulty concentrating, remembering or making decisions? No [email or web address] Information no t available 08/26/2022 Family History Relationship Description Onset Age of this Age Resolved Age Notes LastModified by Organization Details LastModified Time Father No current problems or disability [email or web address] [id number] Not available 08/06/2022 06:08:25 Mother No current problems or disability [email or web address] [id number] Not available 08/06/2022 06:08:25 Notes:NO ENT Medical History Condition Response ALLERGIES/HAYFEVER Y HIGH CHOLESTEROL / HYPERLIPIDEMIA Y ARTHRITIS Y HEARTBURN / REFLUX Y HYPERTENSION Y CANCER: SPECIFY Y ANXIETY DISORDER Y Gynecological History Statement/Question Response Date of Last Mammogram 12/13/2021 Date of Last Colonoscopy 08/12/2021 Most Recent Bone Density 12/13/2021 Obstetrics History GPAL:G 0 P 0 0 0 0 Immunizations Vaccine Type Date Status Note Provider Nam e and Address Organization Details Recorded Time COVID-19, mRNA, LNP-S, PF, 30 mcg/0.3 mL dose 1 completed Not Available [facility] 08/06/2022 06:20:19 COVID-19, mRNA, LNP-S, PF, 30 mcg/0.3 mL dose 1 completed Not Available [facility] 08/06/2022 06:20:19 Influenza, high-dose, quadrivalent, PF 0 completed Not Available [facility] 08/06/2022 06:20:19 Influenza, high-dose, quadrivalent, PF 2 completed Not Available [facility] 08/06/2022 06:20:19 Influenza, high-dose, quadrivalent, PF 1 completed Not Available [facility] 08/06/2022 06:20:19 pneumococcal polysaccharide PPV23 1 completed Not Available [facility] 08/06/2022 06:20:20 Pneumococcal conjugate PCV 13 9 completed Not Available [facility] 08/06/2022 06:20:20 Tdap 6 completed Not Available [facility] 08/06/2022 06:20:20 Influenza, split virus, trivalent, PF 4 completed ROBERT Pearson [place] - [facility] [employer] 04/26/2024 17:51:48 Past Encounters Encounter ID Performer Location Encounter Start Date Encounter Closed Date Diagnosis/Indication Diagnosis SNOMED-CT Code Diagnosis ICD10 Code Diagnosis Note [id number] Sheila Eubanks MD [facility] Internal [address] [facility] [place] [address] 08/24/2024 11:28:49 08/24/2024 12:10:56 Essential hypertension 67658930 I10 under control Gastroesop hageal reflux disease 541311501 K21.9 needs meds daily Adult heal th examination 929088684 Z00.00 Z13.220 Colonoscop y 08/27Mammog bernadette- 02/23/2024 DEXA- 02/23/2024 FLU- 03/2022, 03/2023, 04/26/2024 COVID- 08/26/20, 09/22/20 and 1 booster, 03/2023Had both pneumovax Anxiety 54174566 F41.9 meds help Depressive disorder 3548 9007 F32.A meds help Hyperlipidemia 07305388 E78.5 stable Malignant neoplasm of skin 119139466 C44.90 no recurrence Obesity 662351615 E66.9 advised to watch diet and lose Osteoarthritis 641697665 M19.90 otc , Kidney disease 49488327 N08 GFR 54, [id number] MATT Bradshaw [facility] [place] [address] [place] [address] 09/07/2024 11:20:33 09/07/2024 12:14:07 Impacted cerumen in left ear 8310175656 843109 H61.22 left cerumen impaction removed with a combinatio n irrigation , suction, alligator forceps, and a curette device. Feeling of lump in throat 873432775 R09.89 continue taking PPI as previously prescribed . Health Concerns Section Related Observation LastModified by Organization Detai ls LastModified Time None Recorded Concern Status LastModified by Organization Details LastModified Time None Recorded Payers Encounter Date Sequence Insurance Name Policy Number Policy Ayers Covered Member ID Ayers Member ID Guarantor Name 09/07/2024 1 [facility] (MEDICARE REPLACEMENT/A DVANTAGE - PPO) [id number] Henny Jeff [id number] Henny Jeff Notes Date Note Type Note Provider Name and Address Organization Details Recorded Time 09/07/2024 text/html This patient has a past [...] a possible GI referral MATT Bradshaw [address] [facility] [facility] [address], [place], [address], [place] - [facility] 09/07/2024 12:13:24 OBGyn Episode No OBEpisode recorded.
--- OUTSIDE RECORDS SUMMARY | 2024-09-08 22:32 | XMS_ITS | Clinical Summary ---
Author Organization [address] Address [address] [place] [address] Care Team Providers Care Sports Physiologist Name Role Phone Unknown, Notinfile Primary Care [...] on file Legal Sex Female 9:25 PM [employer] OPER[employer] Gender Identity Not on file Sexual Orientation Not on file Obstetrics History Last Filed Vital Signs Vital Sign Reading Time Taken Comments Blood Pressure 108/80 07/21/2022 4:58 PM [employer] Pulse 108 07/21/2022 4:58 PM [employer] OPER[employer] Temperature 38 C (100.4 F) 07/21/2022 4:58 PM [employer] OPERATOR Respiratory Rate 20 07/21/2022 4:58 PM [employer] OPERATOR Oxygen Saturation 94% 07/21/2022 4:58 PM [employer] OPERATOR Inhaled Oxygen Concentration - - Weight 88.5 kg (195 lb) 07/21/2022 4:58 PM [employer] OPERATOR Height 165.1 cm (5' 5 ) 07/21/2022 4:58 PM [employer] OPER[employer] Body Mass Index 32.45 07/21/2022 4:58 PM [employer] OPERATOR Plan of Treatment Health Maintenance Due Date Last Done Comments Breast Cancer Screening-Mammogram 1952 Colon Cancer Screening-Colonoscopy 1950 Depression Screening 1952 Fall Risk Assessment 1950 Hepatitis C Screening 1950 Osteoporosis Screening-Bone Density Scan 1952 Hepatitis B Screening 1970 Zoster Vaccine (1 of 2) 2002 Well Visit 65+ 2017 Covid-19 Vaccine ( season) 2024 04/27/2021, 09/22/2020, 08/26/2020 Influenza Vaccine (Season Ended) 2025 03/14/20, 03/19/2021 DTaP/Tdap/Td Vaccine (2 - Td or Tdap) 07/17/202502/2016 Pneumococcal vaccine 65+ Completed 07/30/2020, 07/09 Insurance [employer] MEDICARE PPO Care Teams Sports Physiologist Relationship Specialty Start Date End Date Unknown, Notinfile PCP - General 07/21/22
[2024-09-08 22:38] VITALS: BP 155/91; PULSE 114; RESP 22; TEMP 36.8; O2SAT 100
--- NOTE | 2024-09-08 22:43 | ECG_ITS ---
Test Date: 2024-09-08 22:48:04 Measurements Intervals [place] Rate: 102 P: 32 VA: 197 QRS: -31 QRSD: 73 T: 27 QT: 330 QTc: 431 Interpretive Statements SINUS TACHYCARDIA LEFT AXIS DEVIATION LOW QRS VOLTAGE IN PRECORDIAL LEADS POSSIBLE ANTERIOR MYOCARDIAL INFARCTION , OF INDETERMINATE AGE INFERIOR INFARCT, AGE INDETERMINATE BASELINE ARTIFACT- I, II, III, AVR, AVL, V1 ABNORMAL ECG No previous ECG available for comparison Electronically Signed On 09-09-2024 06:19:28 CDT by Anant Fonseca D.O.
--- NOTE | 2024-09-08 23:56 | ED_ITS ---
HPI - Skin/Abscess/Foreign Bdy General Chief complaint: Unspecified Stated complaint: Pill stuck in throat Time Seen by Provider: 09/08/24 23:43 History of Present Illness HPI narrative: 74-year-old female presenting to the ER for evaluation of pain in the back red throat that she feels is a pill that was stuck. At approximately 10:00 p.m. she took a Tylenol extra-strength white capsule that was not enteric coated and tried to swallow this. She felt like it did not go down all the way and got stuck in the back of her throat. She tried swallowing some water afterwards but still has a globus sensation. She is swallowing okay, tolerating her secretions, no nausea or vomiting. No trouble breathing or shortness a breath. Was otherwise in her normal state of health. She states she has been doing excessive out of crying over last few days as she lost her last week and she did see an gear coding machine operator as she was having some inflammation in her sinuses and ears and this was attributed to recent crying. Patient has otherwise been in her normal state of health and otherwise asymptomatic recently. No history of esophageal complaint, no history of irregular upper endoscopy. Does not see a GI doctor. Related Data Home Medications ?Medication ?Instructions ?Recorded ?Confirmed ?Last Taken ?Type cholecalciferol (vitamin D3) 125 5,000 unit PO DAILY 04/13/19 05/01/24 Unknown History mcg (5,000 unit) capsule lisinopril 20 mg tablet 20 mg PO DAILY 04/13/19 05/01/24 08/12/21 07:30 History pantoprazole 40 mg tablet,delayed 40 mg PO QAM 04/13/19 05/01/24 Unknown History release rosuvastatin 5 mg tablet 5 mg PO DAILY 04/13/19 05/01/24 Unknown History bupropion HCl 150 mg 24 hr tablet, 150 mg PO DAILY 08/02/21 05/01/24 Unknown History extended release metoprolol succinate 25 mg 25 mg PO DAILY 04/29/24 05/01/24 Unknown History tablet,extended release 24 hr multivitamin (Daily Multi-Vitamin 1 tablet PO DAILY 04/29/24 05/01/24 Unknown History tablet) Allergies Allergy/AdvReac Type Severity Reaction Status Date / Time No Known Allergies Allergy Unknown Uncoded 09/08/24 22:30 Review of Systems 2 Review of Systems: As reviewed above in [facility] Past Medical History Medical History (Updated 09/09/24 @ 04:15 by Maykel Garcia MD) History of hemorrhoids Hypertension Hypocholesterolemia Surgical History Surgical History H/O: hysterectomy History of bladder surgery bladder tie up H/O hernia repair right spigelian H/O tubal ligation History of cholecystectomy Family History Family History Father Hypertension Family history of arthritis Family history of lung disease Mother Hypertension Family history of liver disease Family history of arthritis Family history of malignant neoplasm, Onset Age: 81 Sibling Family history of lung cancer Family history of malignant neoplasm of breast in first degree relative Other Family history of cardiovascular disease Social History Social History Smoking status: Never smoker Alcohol intake: never Substance use: never Do You Feel Safe in your Home?: Yes Lack of Transportation: No Lack of Food: Never True Current Housing: I Have Housing Concerned About Future Housing: No Difficulty Paying Gas/Electric Bills: No Difficulty Paying for Meds: No Currently Unemployed: No Education: High School Diploma/GED Difficulty w/ Childcare or Family Care: No Living arrangements: with family Spiritual care concerns: No Exam 2 Narrative: GENERAL: [Well-appearing, well-nourished, and in no acute distress.] HEAD: [Normocephalic, atraumatic.] EYES: [PERRLA and EOMI.] ENT: Nares clear, no rhinorrhea or epistaxis. Mucous membranes moist. Tolerating secretions without any pooling. NECK: Supple. No stridor with auscultation CHEST: [Clear to auscultation. No respiratory distress.] HEART: [Regular rate and rhythm]. No murmur heard. [Normal peripheral pulses.] ABDOMEN: [Soft, nondistended], [nontender], [No rigidity or guarding] EXTREMITIES: Normal range of motion. [No edema.] SKIN: Warm, dry, no rash. NEURO: [No focal deficits]. Alert and oriented [x3.] PSYCH: [Normal mood and affect.] Course Vital Signs Vital signs: Vital Signs Temperature 36.8 C 09/08/24 22:38 Pulse Rate 114 H 09/08/24 22:38 Respiratory Rate 22 H 09/08/24 22:38 Blood Pressure 155/91 H 09/08/24 22:38 Pulse Oximetry 100 09/08/24 22:38 Oxygen Delivery Room Air 09/08/24 22:38 Temperature 36.8 C 09/08/24 22:38 Pulse Rate 83 09/09/24 03:03 Respiratory Rate 14 09/09/24 03:03 Blood Pressure 149/94 H 09/09/24 03:03 Pulse Oximetry 100 09/09/24 03:03 Oxygen Delivery Room Air 09/08/24 22:38 MDM - Skin/Abscess/Foreign Bdy MDM Narrative Medical decision making narrative: 74-year-old female presenting with globus sensation and potential pill stuck in the back of her throat. She tried taking a Tylenol extra-strength earlier today and feels like it did not go down all the way. She has an irritation the back for throat but no trouble swallowing presently. No pooling secretions. No nausea vomiting. No difficulty in breathing. Recently been crying a lot as she lost her and feels like her airway and nasal passages have an inflamed from significant tears. Saw an ear nose and throat doctor several days ago for this and was told to take Tylenol and ibuprofen. Her examination is reassuring. There is no signs of respiratory distress. No signs of any obstruction in the proximal upper airways are oropharynx, no bleeding or redness in the back of the throat. No stridor with auscultation, but clear breath sounds throughout. Suspicion presently is for retained pill in the back of her throat although very unlikely and more likely that she had some pill esophagitis or globus sensation from the irritation of the pill not going down initially. Feel the pill likely has dissolved. Patient is tolerating secretions at bedside. She was given Maalox and a soft tissue x-ray of the neck was obtained for any radiopaque foreign bodies although unlikely to find anything. Soft tissue neck did show some soft tissue swelling prevertebral level and recommendations are for a CT scan of the neck with contrast. This was ordered as well as IV laboratory studies. Patient was re-evaluated had complete symptomatic resolution after the initial Maalox. Did not have any foreign body sensation of globus sensation. Would like to proceed with CT scan to make sure. Laboratory studies showed no leukocytosis or anemia. Normal platelet count. No electrolyte concerns. Normal renal function. Patient CT scan of the neck shows a 1.5 cm midline cyst consistent with a thyroglossal duct cyst but otherwise no acute findings. Patient will be made aware of this and will have follow-up with her in your nose and throat specialist although this is not causing any current symptomatology it might need to be addressed on outpatient visit. Medical Records Attestation: I reviewed the patient's medical records. Lab Data Attestation: I reviewed the patient's lab results. 09/09/24 02:07 09/09/24 02:07 Labs: Lab Results 09/09/24 Range/Units 02:07 WBC 8.2 (4.5-10.0) K/mm3 RBC 4.14 L (4.2-5.4) M/mm3 Hgb 12.2 (12.0-15.0) g/dL Hct 38.3 (37.0-47.0) % MCV 92.5 (80-100) fl MCH 29.5 (26-34) pg MCHC 31.9 L (32-36) g/dl RDW 14.2 (11.5-14.5) % Plt Count 211 (150-375) k/mm3 MPV 11.1 H (7.4-10.4) fl Immature Gran % (Auto) 0.4 (0-0.5) % Neut % (Auto) 69.0 (45.5-73.1) % Lymph % (Auto) 19.4 (18.3-44.2) % [place] % (Auto) 9.5 H (2.6-8.5) % Eos % (Auto) 1.2 (0-4.4) % Baso % (Auto) 0.5 (0.2-1.2) % Lymph # (Auto) 1.60 (0.9-3.2) K/mm3 [place] # (Auto) 0.8 H (0.1-0.6) K/mm3 Eos # (Auto) 0.1 (0-0.3) K/mm3 Baso # (Auto) 0.0 (0.0-0.1) K/mm3 Abs Immat Gran (auto) 0.03 (0.00-0.031) K/mm3 Absolute Neuts (auto) 5.7 (1.3-6.7) K/mm3 Absolute Nucleated RBC 0.000 (0.0-0.012) K/mm3 Nucleated RBC % 0.0 (0.0-0.2) % Sodium 137 (137-145) mmol/L Potassium 3.6 (3.4-5.0) mmol/L Chloride 99 (98-107) mmol/L Carbon Dioxide 27 (22-30) mmol/L Anion Gap 11 (4-12) mmol/L BUN 17 (7-17) mg/dL Creatinine 1.00 (0.7-1.0) mg/dL Estim Creat Clear Calc 50 ml/min Estimated GFR 55 L (59 - ) Glucose 114 H (65-110) mg/dL Calcium 9.5 (8.4-10.2) mg/dL Imaging Data Attestation: I personally reviewed and interpreted this imaging study as follows: My impression: Thyroglossal duct cyst Discharge Plan Discharge Clinical Impression: Thyroglossal duct cyst, Pill dysphagia Patient Disposition: Home, Self-Care Condition: Stable Instructions: Antibiotic Form, Thyroglossal Duct Cyst (ED) Additional Instructions: Your CT scan shows a small 1.5 cm thyroglossal duct cyst. This is a benign finding but could have caused her symptoms today in addition to the swelling that you have had from previous crying. There is no stuck pill or any other foreign body in your neck. Contact your your nose and throat specialist to discuss this finding as there are symptomatic treatment options and even surgery if needed. Return with any new or emergent concerns. Patient Language: Divehi Prescriptions: New alum-mag hydroxide-simeth [Maalox Advanced] 200-200-20 mg/5 mL suspension 15 ml PO QID PRN (Reason: indigestion) Qty: 3000 0RF Rx Instructions: administer between meals and at bedtime No Action metoprolol succinate 25 mg tablet extended release 24 hr 25 mg PO DAILY multivitamin [Daily Multi-Vitamin] Tablet 1 tablet PO DAILY lisinopril 20 mg tablet 20 mg PO DAILY pantoprazole 40 mg tablet,delayed release (DR/EC) 40 mg PO QAM rosuvastatin 5 mg tablet 5 mg PO DAILY cholecalciferol (vitamin D3) 5,000 unit capsule 5,000 unit PO DAILY bupropion HCl 150 mg tablet extended release 24 hr 150 mg PO DAILY Follow-up/Referrals: Cha,Dany Patel MD [Primary Care Provider] - Time of Disposition: 04:15
[2024-09-09] MEDS: MAG HYDROX/AL HYDROX/SIMETH 30 ML UDC PO (00:10)
[2024-09-09 00:12] VITALS: BP 141/80; PULSE 83; RESP 14; O2SAT 98
--- OUTSIDE RECORDS SUMMARY | 2024-09-09 00:25 | XMS_ITS | Clinical Summary ---
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 For the hip, a [...] was compared to guideline thresholds from the [employer]. For the hip, a [...] Recently Relevant to Health Maintenance Insurance [employer] [facility] OPTIONS PPO [id number] [place] [id number]
--- OUTSIDE RECORDS SUMMARY | 2024-09-09 00:26 | XMS_ITS | Clinical Summary ---
Author Organization [address] Address [address] [place] [phone] Care Team Providers Care Personal Injury Paralegal Name Role Phone Unknown, Notinfile Primary Care [...] on file Legal Sex Female 9:25 PM IRON BENDER Gender Identity Not on file Sexual Orientation Not on file Obstetrics History Last Filed Vital Signs Vital Sign Reading Time Taken Comments Blood Pressure 108/80 07/21/2022 4:58 PM IRON BENDER Pulse 108 07/21/2022 4:58 PM IRON BENDER Temperature 38 C (100.4 F) 07/21/2022 4:58 PM IRON BENDER Respiratory Rate 20 07/21/2022 4:58 PM IRON BENDER Oxygen Saturation 94% 07/21/2022 4:58 PM IRON BENDER Inhaled Oxygen Concentration - - Weight 88.5 kg (195 lb) 07/21/2022 4:58 PM IRON BENDER Height 165.1 cm (5' 5 ) 07/21/2022 4:58 PM IRON BENDER Body Mass Index 32.45 07/21/2022 4:58 PM IRON BENDER Plan of Treatment Health Maintenance Due Date [...] Insurance [employer] PPO Care Teams Personal Injury Paralegal Relationship Specialty Start Date End Date Unknown, Notinfile PCP - General 07/21/22
--- OUTSIDE RECORDS SUMMARY | 2024-09-09 00:26 | XMS_ITS | Encounter Summary ---
Author Organization [facility] Address [address] [place] [address] Care Team Providers Care Jinrikisha Driver Name Role Phone Dany Eubanks MD Primary Care Provider Shae Cohn AUTO BODY REPAIR TEACHER-SURVEYING TEACHER Unavailable [phone] Encounter Details Date Type Department Care Team (Late st Contact Info) Description 11/11/2022 Lab Requisition [facility] - DermPath Lab [address] [facility] [place] [id number] Leo Cleary MD [address] [place] [address] Social History Tobacco Use Types [...] AM CDT) Case Report Dermatopathology Report Case: [id number] Authorizing Provider: Leo Cleary MD Collected: 11/11/2022 12:00 AM Ordering Location: [facility] DermPath Lab Received: 11/11/2022 04:48 PM Pathologist: Marisol Cohn MD Specimen: Skin, left thigh 2:58 PM CDT DERMATOPATHOLOGY LABORATORY Final Diagnosis Specimen A. SKIN, left thigh: BENIGN VERRUCOUS KERATOSIS, INFLAMED (L82.1) 3 2:58 PM CDT DERMATOPATHOLOGY LABORATORY Clinical History SCCA vs. VV vs. SK. Path# [id number] 3 2:58 PM CDT DERMATOPATHOLOGY LABORATORY Gross Description Specimen A: Received is one formalin filled container labeled with the patient's name and designated left thigh. The specimen consists of a shave biopsy measuring [id number] and it is bisected. Jar 0. 2:58 [...] characteristic determined by the Dermatopathology Laboratory at [facility], directed by Dr. Cristina Tirado. These tests need not be, and therefore are not, approved by the [place] Food and Drug Administration. The tests are used for clinical purposes. Billing Codes Specimen Charges Stain Charges 96228 1 3 2:58 PM CDT DERMATOPATHOLOGY LABORATORY Embedded Images 2:58 PM CDT DERMATOPATHOLOGY LABORATORY Pathology/Cytolog y TISSUE SPECIMEN FROM SKIN / Unknown 11/11/2022 11/11/2022 4:48 PM CDT Leo Cleary MD LAB - PATHOLOGY/CYTO LOGY ORDERABLES DERMATOPATHOLOGY LABORATORY [facility] - Department of Dermatology [place] [id number] [facility] [phone] documented in this encounter Visit Diagnoses Not on filedocumented in this encounter Care Teams Jinrikisha Driver Relationship Specialty Start Date End Date Dany Eubanks MD [address] [facility] [address] [place] [phone] PCP - General 07/04/15 Shae Cohn, ESTHER-SURVEYING TEACHER [address] [place] [phone] PCP - Attributed-[facility] 08/07/23 documented as of this encounter
--- OUTSIDE RECORDS SUMMARY | 2024-09-09 00:26 | XMS_ITS | Clinical Summary ---
Author Organization [facility] Address [facility] [address] [place] [address] Care Team Providers Care Client Analyst Name Role Phone Dany Eubanks MD Primary Care Provider [phone] Source Comments [facility]- [facility] and Associated Physician Practices is amultiple site organization consisting of ambulatory clinics and hospital sitesin [place], [place], [place] and [place]. This disclosure is being madepursuant to the Care Everywhere program and may not contain all information available regarding this patient. Last updated 18.[facility] Active Problems Problem Noted Date Diagnosed Date [...] Comments Blood Pressure 124/89 06/27/2015 12:00 PM TEXTILE WORKER Pulse 81 06/27/2015 12:00 PM TEXTILE WORKER Temperature 37.3 C (99.2 F) 06/26/2015 6:47 PM TEXTILE WORKER Respiratory Rate 19 06/27/2015 12:00 PM TEXTILE WORKER Oxygen Saturation 97% 06/27/2015 12:00 PM TEXTILE WORKER Inhaled Oxygen Concentration - - Weight 81.6 [...] age to complete this topic Care Teams Client Analyst Relationship Specialty Start Date End Date Dany Eubanks MD [address] [place] [address] [address] [place] [address] PCP - General 07/04/15
--- OUTSIDE RECORDS SUMMARY | 2024-09-09 00:26 | XMS_ITS | Referral Summary ---
Author Organization [address] Address [address] [place] [phone] Care Team Providers Care Tar Heater Name Role Phone Unknown, Notinfile Primary Care [...] on file Legal Sex Female 9:25 PM ADMINISTRATIVE ASSISTANT RECEPTIONIST Gender Identity Not on file Sexual Orientation Not on file Last Filed Vital Signs Vital Sign Reading Time Taken Comments Blood Pressure 108/80 07/21/2022 4:58 PM ADMINISTRATIVE ASSISTANT RECEPTIONIST Pulse 108 07/21/2022 4:58 PM ADMINISTRATIVE ASSISTANT RECEPTIONIST Temperature 38 C (100.4 F) 07/21/2022 4:58 PM ADMINISTRATIVE ASSISTANT RECEPTIONIST Respiratory Rate 20 07/21/2022 4:58 PM ADMINISTRATIVE ASSISTANT RECEPTIONIST Oxygen Saturation 94% 07/21/2022 4:58 PM ADMINISTRATIVE ASSISTANT RECEPTIONIST Inhaled Oxygen Concentration - - Weight 88.5 kg (195 lb) 07/21/2022 4:58 PM ADMINISTRATIVE ASSISTANT RECEPTIONIST Height 165.1 cm (5' 5 ) 07/21/2022 4:58 PM ADMINISTRATIVE ASSISTANT RECEPTIONIST Body Mass Index 32.45 07/21/2022 4:58 PM ADMINISTRATIVE ASSISTANT RECEPTIONIST Plan of Treatment Not on file Insurance [employer] PPO [id number] [place] [id number] Care Teams Tar Heater Relationship Specialty Start Date End Date Unknown, Notinfile PCP - General 07/21/22
[2024-09-09 02:13] LABS: Basophils Percent Auto 0.5 % (0.2-1.2); Eosinophils Absolute Auto 0.1 K/mm3 (0-0.3); Eosinophils Percent Auto 1.2 % (0-4.4); Hematocrit 38.3 % (37.0-47.0); Hemoglobin 12.2 g/dL (12.0-15.0); Immature Granulocyte Absolute 0.03 K/mm3 (0.00-0.031); Immature Granulocyte Percent A 0.4 % (0-0.5); Lymphocytes Percent Auto 19.4 % (18.3-44.2); Mean Corpuscular HGB Conc 31.9 g/dl (32-36); Mean Corpuscular Hemoglobin 29.5 pg (26-34); Mean Corpuscular Volume 92.5 fl (80-100); Mean Platelet Volume 11.1 fl (7.4-10.4); Monocytes Absolute Auto 0.8 K/mm3 (0.1-0.6); Monocytes Percent Auto 9.5 % (2.6-8.5); Neutrophils Absolute Auto 5.7 K/mm3 (1.3-6.7); Platelet Count Result 211 k/mm3 (150-375); Red Blood Count 4.14 M/mm3 (4.2-5.4); Red Cell Distribution Width 14.2 % (11.5-14.5); White Blood Count 8.2 K/mm3 (4.5-10.0)
[2024-09-09 02:23] LABS: Anion Gap 11 mmol/L (4-12); Blood Urea Nitrogen 17 mg/dL (7-17); Calcium 9.5 mg/dL (8.4-10.2); Carbon Dioxide 27 mmol/L (22-30); Chloride 99 mmol/L (98-107); Estimated CRCL calculation 50 ml/min; Estimated Glomerular Filt Rate 55; Glucose 114 mg/dL (65-110); Potassium 3.6 mmol/L (3.4-5.0); Sodium 137 mmol/L (137-145)
[2024-09-09 02:48] VITALS: RESP 14; O2SAT 97
[2024-09-09 03:03] VITALS: BP 149/94; PULSE 83; RESP 14; O2SAT 100
[2024-09-09 04:25] VITALS: BP 135/80; PULSE 77; RESP 16; O2SAT 97
== END 2024-09-09 04:25 | disposition home or self-care (01) ==
PROVIDERS: Emergency Provider Student in an Organized Health Care Education/Training Program; PCP Internal Medicine
DX: Q89.2 Congenital malformations of other endocrine glands (principal); R13.19 Other dysphagia; I10 Essential (primary) hypertension
CPT/HCPCS: 36415; 70360; 70491; 80048; 85025; 93005; 99284; A9270; Q9967